=== PATIENT | female | born 1975 | race Caucasian/White ===

== ENCOUNTER 2019-03-14 08:38 | Outpatient (CLI) | payer OTHER, SELFPAY ==
--- NOTE | 2019-03-14 | MR_ITS ---
WS: [id number] MRI LUMBAR SPINE WITH AND WITHOUT CONTRAST HISTORY: HX SPINAL STENOSIS, RADICULAR PAIN IN RIGHT ARM COMPARISON: 11/10/2017 TECHNIQUE: Sagittal and axial multisequence imaging is submitted. Sagittal and axial T1 fat sat seque nces post-ProHance 17 cc IV. T10-11: Moderate disc space narrowing and osteophytic ridging. Disc desiccation and osteophytes have been present on the prior studies. There is encroachment and slight deformity on the ventral cord wit hout significant foraminal narrowing. Very slight narrowing of the RIGHT foramen and facet disease. Slight increase in lumbar lordosis. Similar to prior studies. Mild disc desiccation at L4-5. Moderate degenerative disc disease at L5-S1. No marrow edema or fractu re. Conus terminates normally at L1. L1-L2: Normal. L2-L3: Normal. L3-L4: Mild facet joint arthropathy and fluid in the facet joints. No stenosis. L4-L5: Mild annular disc bulging with a very shallow central disc protrusion, similar to the prior st juny. Facet joint arthropathy and fluid in the facet joints. No stenosis. L5-S1: Prior LEFT hemilaminectomy defect. Thecal sac is widely patent with slight clumping of the ner ve roots in the periphery. Small RIGHT paracentral disc protrusion. Similar to the prior study. Sligh t encroachment upon the ventral thecal sac but no stenosis. Osteophytes extend into the neural forami na without significant stenosis. Slightly larger osteophytes in the RIGHT foramen. No discitis or osteomyelitis.
--- NOTE | 2019-03-14 | MR_ITS ---
WS: [id number] MRI CERVICAL SPINE, with and without contrast. HISTORY: HX SPINAL STENOSIS COMPARISON: 11/10/2017 and 10/25/2012. Multiplanar, multisequence imaging is performed of the cervical spine. Sagittal and axial T1 fat sat sequences post-ProHance 17 cc IV. Normal posterior cervical alignment. No fracture or marrow edema. Very slight ectopia of the cerebell ar tonsils, similar to the prior study with no Chiari malformation. Signal within the cervical cord is normal. Unfortunately there is motion artifact on the STIR sequenc e but no signal abnormality is appreciated. Visualized posterior fossa is unremarkable. Craniocervical junction, C1 and C2 relationship, odontoid process and soft tissues are normal. C2-C3: Normal. C3-C4: Normal. C4-C5: Small vertebral body osteophytes with a shallow central disc protrusion. Bilateral foraminal o steophytes resulting in moderate bilateral foraminal stenosis. C5-C6: Mild osteophytic ridging and disc bulging. Shallow central disc protrusion without significant stenosis. C6-C7: Annular disc bulging and osteophytosis. Central disc protrusion with near contact on the cord. Small bilateral foraminal osteophytes. Mild central and LEFT foraminal stenosis. C7-T1: Normal. No signal abnormalities are identified within the cord. There is no enhancement.
--- NOTE | 2019-03-14 09:11 | MR_ITS ---
WS: [id number] MRI CERVICAL SPINE, with and without contrast. HISTORY: HX SPINAL STENOSIS COMPARISON: 11/10/2017 and 10/25/2012. Multiplanar, multisequence imaging is performed of the cervical spine. Sagittal and axial T1 fat sat sequences post-ProHance 17 cc IV. Normal posterior cervical alignment. No fracture or marrow edema. Very slight ectopia of the cerebell ar tonsils, similar to the prior study with no Chiari malformation. Signal within the cervical cord is normal. Unfortunately there is motion artifact on the STIR sequenc e but no signal abnormality is appreciated. Visualized posterior fossa is unremarkable. Craniocervical junction, C1 and C2 relationship, odontoid process and soft tissues are normal. C2-C3: Normal. C3-C4: Normal. C4-C5: Small vertebral body osteophytes with a shallow central disc protrusion. Bilateral foraminal o steophytes resulting in moderate bilateral foraminal stenosis. C5-C6: Mild osteophytic ridging and disc bulging. Shallow central disc protrusion without significant stenosis. C6-C7: Annular disc bulging and osteophytosis. Central disc protrusion with near contact on the cord. Small bilateral foraminal osteophytes. Mild central and LEFT foraminal stenosis. C7-T1: Normal. No signal abnormalities are identified within the cord. There is no enhancement. MR/MR cervical spine wo/w [id number] IMPRESSION: 1. No enhancing demyelinating lesions or signal abnormalities are appreciated involving the cord. Slight limitation due to motion artifact on the STIR sequen ce. 2. Central disc protrusion at C3-4 and osteophytes resulting in moderate bilat eral foraminal stenosis with mild progression since the prior study. 3. Central disc protrusion at C6-7 and osteophytes resulting in mild central a nd LEFT foraminal stenosis. Mild progression since the prior study.
--- NOTE | 2019-03-14 09:11 | MR_ITS ---
WS: [id number] MRI BRAIN WITH AND WITHOUT CONTRAST HISTORY: HEADACHE WEAKNESS COMPARISON: None available. TECHNIQUE: Multiplanar imaging performed through the brain with Prohance 17 ml's IV. No acute infarcts are seen. Chavez-white matter differentiation is well preserved. Minimal subcortical foci of increased T2 and FLAIR signal in the temporal parietal regions. No pericallosal signal abnorm alities. No susceptibility artifacts or prior lacunar infarcts. Ventricles and extra-axial spaces are normal. Clivus and pituitary gland are normal. Very minimal ectopia the cerebellar tonsils. No Chiari malformation. Signal within the upper cervical cord is normal. Postcontrast images are negative for masses or vascular malformations. Dural venous sinuses are normal. Paranasal sinuses: Well aerated with no significant disease. Mastoid air cells: Normal. Calvarium and scalp: Normal. MR/MR head wo/w con [id number] IMPRESSION: 1. No evidence for demyelinating lesions or abnormal enhancement within the br ain. 2. Minimal, age-appropriate subcortical foci of probably related to chronic is chemic disease.
--- NOTE | 2019-03-14 09:11 | MR_ITS ---
WS: [id number] MRI LUMBAR SPINE WITH AND WITHOUT CONTRAST HISTORY: HX SPINAL STENOSIS, RADICULAR PAIN IN RIGHT ARM COMPARISON: 11/10/2017 TECHNIQUE: Sagittal and axial multisequence imaging is submitted. Sagittal and axial T1 fat sat seque nces post-ProHance 17 cc IV. T10-11: Moderate disc space narrowing and osteophytic ridging. Disc desiccation and osteophytes have been present on the prior studies. There is encroachment and slight deformity on the ventral cord wit hout significant foraminal narrowing. Very slight narrowing of the RIGHT foramen and facet disease. Slight increase in lumbar lordosis. Similar to prior studies. Mild disc desiccation at L4-5. Moderate degenerative disc disease at L5-S1. No marrow edema or fractu re. Conus terminates normally at L1. L1-L2: Normal. L2-L3: Normal. L3-L4: Mild facet joint arthropathy and fluid in the facet joints. No stenosis. L4-L5: Mild annular disc bulging with a very shallow central disc protrusion, similar to the prior st udy. Facet joint arthropathy and fluid in the facet joints. No stenosis. L5-S1: Prior LEFT hemilaminectomy defect. Thecal sac is widely patent with slight clumping of the ner ve roots in the periphery. Small RIGHT paracentral disc protrusion. Similar to the prior study. Sligh t encroachment upon the ventral thecal sac but no stenosis. Osteophytes extend into the neural forami na without significant stenosis. Slightly larger osteophytes in the RIGHT foramen. No discitis or osteomyelitis. MR/MR lumbar spine wo/w con [id number] IMPRESSION: 1. Prior LEFT hemilaminectomy defect at L5-S1. 2. Shallow central disc protrusion at L4-5 with no change. 3. Small RIGHT paracentral disc protrusion L5-S1 with bilateral foraminal oste ophytes. No significant stenosis or progression. 4. Encroachment and mild contact upon the ventral thecal sac at T10-11 predomi nantly due to osteophyte disease, similar to prior examinations.
== END 2019-03-14 08:39 | disposition home or self-care (01) ==
PROVIDERS: Absent Provider Family Medicine; Family Provider Family Medicine; Visit Provider Family Medicine
DX: M51.27 Other intervertebral disc displacement, lumbosacral region (principal); M50.21 Other cervical disc displacement, high cervical region; H53.8 Other visual disturbances; R42 Dizziness and giddiness; R51 Headache; R53.1 Weakness; M79.2 Neuralgia and neuritis, unspecified; R20.0 Anesthesia of skin
CPT/HCPCS: 70553; 72156; 72158; A9579

== ENCOUNTER 2019-03-19 07:45 | Outpatient (CLI) | payer OTHER, SELFPAY ==
--- NOTE | 2019-03-19 08:11 | MR_ITS ---
WS: [id number] MRI THORACIC SPINE WITH CONTRAST TECHNIQUE: Sagittal T1, T2 and STIR imaging. Axial T2 imaging. Post gadolinium imaging was obtained. CLINICAL INFORMATION: BLE WEAKNESS, HX OF SPINAL STENOSIS COMPARISON: MRI cervical lumbar FINDINGS: Mild thoracic curve. No acute compression. No high-grade central canal stenosis. Mild disc bulging at T10-11 similar to the prior examinations with mild central canal stenosis. Moderate right and no sig nificant left foraminal narrowing. Moderate facet arthropathy. No other significant Tiny right pericentral protrusion T6-T7 with slight indentation on the thoracic cord. Spinal canal is patent. Tiny left pericentral protrusion T8-T9. Moderate facet arthropathy in the lower thoracic spi ne. Normal visualized thoracic aorta. Adrenal glands are normal. Normal paravertebral soft tissues. No ab normal gadolinium enhancement. No enhancing lesions within the thoracic cord. MR/MR thoracic spine wo/w [id number] IMPRESSION: 1. Small right pericentral protrusion T10-11 with mild central canal stenosis. Moderate right foraminal narrowing is unchanged. 2. Shallow right pericentral protrusion T6-T7 with slight indentation on the t horacic cord. 3. Moderate facet arthropathy lower thoracic spine. 4. No abnormal gadolinium enhancement. No enhancing lesions within the thoraci c cord. 5. Thoracic cord signal is normal.
--- NOTE | 2019-03-19 08:12 | MR_ITS ---
WS: [id number] MRI LUMBAR SPINE WITH CONTRAST TECHNIQUE: Sagittal T1, T2 and STIR imaging. Axial T1 and T2 imaging. Post gadolinium imaging was obt ained. CLINICAL INFORMATION: BLE WEAKNESS, HX OF SPINAL STENOSIS COMPARISON: MRI 1 FINDINGS: Prior postoperative changes left hemilaminectomy L5-S1. No recurrent disc extrusion. Disc bulging at T10-11 with mild central canal stenosis. Moderate right T10-11 foraminal narrowing. L1-L2: Normal. L2-L3: No significant disc bulging. Moderate facet arthropathy. Spinal canal and foramen are patent. L3-L4: Mild annular bulging. Moderate facet arthropathy. Spinal canal and foramen are patent. L4-L5: Mild annular bulging with slight effacement of ventral thecal sac. Moderate facet arthropathy. Mild right and no significant left foraminal narrowing. Slight effacement of ventral thecal sac. L5-S1: Disc desiccation. Prior hemilaminectomy. Right eccentric disc osteophyte complex with slight e ncroachment on the exiting right L5 nerve root without significant impingement. Right pericentral dis c osteophyte protrusion with slight narrowing of the right subarticular recess. Mild facet arthropath y. No abnormal gadolinium enhancement. MR/MR lumbar spine wo/w con [id number] IMPRESSION: 1. No significant changes compared to the prior examination. 2. Prior postoperative changes L5-S1 hemilaminectomy with a tiny right pericen tral disc osteophyte protrusion. Slight encroachment on the right S1 nerve root without significant impingement. 3. Right eccentric disc osteophyte complex L5-S1 without significant nerve anastacio t impingement. 4. Annular bulging L4-5 with slight effacement of ventral thecal sac. Spinal c anal and foramen are patent. 5. Moderate facet arthropathy L3-L4 and L4-L5. 6. Mild central canal stenosis T10-11 due to mild disc bulging with osteophyti c ridging. Moderate right T10-11 foraminal narrowing. 7. No abnormal gadolinium enhancement.
== END 2019-03-19 07:46 | disposition home or self-care (01) ==
LOC: RADWPI 07:49
PROVIDERS: Family Provider Family Medicine; PCP Family Medicine; Referring Provider Family Medicine; Visit Provider Family Medicine
DX: M48.061 Spinal stenosis, lumbar region without neurogenic claudication (principal); M51.26 Other intervertebral disc displacement, lumbar region; M48.04 Spinal stenosis, thoracic region; M51.24 Other intervertebral disc displacement, thoracic region; R53.1 Weakness
CPT/HCPCS: 72157; 72158; A9579

== ENCOUNTER 2019-04-01 09:20 | Outpatient (CLI) | payer OTHER, SELFPAY ==
--- NOTE | 2019-04-01 09:30 | USCV_ITS ---
Abdirahman Loo Age: 43 Gender: F : 1975 Exam Date: 04/01/2019 09:48 Ordering Phys: Elena Osuna MD Technologist: Brandon Dewey [place] [facility] [place]: TACHACARDIA CHEST PAIN BP: 150 / 90 HR: 60 Rhythm: Sinus Technical Quality: Adequate MEASUREMENTS (Male / Female) Normal Values 2D ECHO LV Diastolic Diameter PLAX 3.6 cm 4.2 - 5.9 / 3.9 - 5.3 cm LV Systolic Diameter PLAX 2.3 cm IVS Diastolic Thickness 0.7 cm 0.6 - 1.0 / 0.6 - 0.9 cm IVS Systolic Thickness 1.4 cm LVPW Diastolic Thickness 0.9 cm 0.6 - 1.0 / 0.6 - 0.9 cm LVPW Systolic Thickness 1.3 cm LVOT Diameter 2.1 cm LV Ejection Fraction 2D Teich 66.4 % LV Ejection Fraction MOD 2C 74.7 % LV Ejection Fraction 2C AL 74.4 % LA Diameter 3.7 cm LA Width 3.3 cm LA Height 3.4 cm RA Width 2.6 cm RA Height 3.6 cm M-MODE LV Diastolic Diameter MM 4.5 cm 4.2 - 5.9 / 3.9 - 5.3 cm LV Systolic Diameter MM 3.0 cm LV Ejection Fraction MM Teich 64.1 % IVS Diastolic Thickness MM 0.8 cm 0.6 - 1.0 / 0.6 - 0.9 cm IVS Systolic Thickness MM 0.9 cm LVPW Diastolic Thickness MM 0.7 cm 0.6 - 1.0 / 0.6 - 0.9 cm LVPW Systolic Thickness MM 1.9 cm RV Diastolic Diameter MM 1.3 cm Aortic Annulus Diameter 3.1 cm LA Ao Ratio MM 1.2 MV E Point Septal Separation 0.9 cm DOPPLER LVOT Peak Velocity 92.0 cm/s MV Area PHT 5.0 cm squared Mitral E to A Ratio 0.9 MV E' Velocity 11.0 cm/s Mitral E to MV E' Ratio 6.3 Mitral E to LV E' Lateral Ratio 6.0 Mitral E to LV E' Septal Ratio 6.7 TR Peak Velocity 129.0 cm/s TR Peak Gradient 6.6 mmHg FINDINGS Left Ventricle Normal left ventricular size and systolic function, EF 66 %. No regional wall motion abnormalities. Right Ventricle Possibly normal size ejection fraction Right Atrium Possibly of normal size Left Atrium Possibly of normal size Mitral Valve Minimally thickened mitral valve Aortic Valve Leaflet could not be visualized well. No gross abnormalities seen Tricuspid Valve Could not be visualized well Pulmonic Valve Could not be visualized well Pericardium No pericardial effusion Aorta Normal aortic annulus size. CONCLUSIONS Normal left ventricular size and systolic function, EF 66 %. No regional wall motion abnormalities. Other cardiac chamber sizes possibly within normal limits No obvious valvular abnormalities There is no pericardial effusion. Technically difficult study because of the poor ultrasonic window. Dr Lester Briscoe MD FACC (Electronically Signed) Final Date: 02 April 2019 07:32 C MTDD
--- NOTE | 2019-04-01 09:58 | SUR.PREOP ---
PATIENT HERE FOR TESTING PATIENT HERE FOR ULTRASOUND AWARE THAT SHE HAD AN ECHO SCHEDULED BUT NOT AWARE OF THE STRESS ECHO. STATES TO ME THAT SHE HAD A STRESS TEST IN [facility] LESS THAN A YEAR AGO. PATIENT AWARE THAT STRESS TIME IS AT 1 PM AND WILL NEED TO CHECK IN AT 1230 TO COMPLETE THAT PORTION OF THE TESTING TODAY. SHE STATES SHE CANNOT D/T WORK. WILL RESCHEDULE AT PATIENT'S CONVENIENCE, BUT THE PATIENT IS WANTING CLARIFICATION FOR STRESS TEST SINCE SHE HAS ONE SO RECENT FROM ANOTHER FACILITY. DR GUNDERSON IS NOT HERE TODAY AND IS OUT OF TOWN UNTIL APRIL TO ASK. STATES SHE WILL CALL HEART CARE AND CLARIFY THE NEED FOR STRESS TEST AND WANT'S TO CANCEL TODAY. NOTED. SCHEDULING AND HEART CARE MADE AWARE.
== END 2019-04-01 09:21 | disposition home or self-care (01) ==
PROVIDERS: Family Provider Family Medicine; PCP Family Medicine; Visit Provider Internal Medicine Cardiovascular Disease
DX: R07.9 Chest pain, unspecified (principal); R00.0 Tachycardia, unspecified
CPT/HCPCS: 93306

== ENCOUNTER → 2019-04-02 14:00 | Outpatient (BNVA) | payer OTHER, SELFPAY | PROVIDERS: Family Provider Family Medicine; PCP Family Medicine; Referring Provider Family Medicine; Visit Provider Internal Medicine Rheumatology | DX: Z11.59 Encounter for screening for other viral diseases (principal); R76.8 Other specified abnormal immunological findings in serum; M19.90 Unspecified osteoarthritis, unspecified site; I73.00 Raynaud's syndrome without gangrene | CPT/HCPCS: 81001; 85025 ==

== ENCOUNTER → 2019-04-02 14:57 | Outpatient (BNVA) | payer OTHER, SELFPAY | PROVIDERS: Family Provider Family Medicine; PCP Family Medicine; Referring Provider Family Medicine; Visit Provider Internal Medicine Rheumatology | DX: I73.00 Raynaud's syndrome without gangrene (principal); Z11.59 Encounter for screening for other viral diseases; Z11.1 Encounter for screening for respiratory tuberculosis; R76.8 Other specified abnormal immunological findings in serum; M19.90 Unspecified osteoarthritis, unspecified site | CPT/HCPCS: 36415; 82565; 82570; 84156; 85651; 86140; 86160; 86431; 86480; 86705; 86706; 86709; 86803; 87340; 99204 ==

== ENCOUNTER → 2019-04-16 13:44 | Outpatient (BNVA) | payer OTHER, SELFPAY | PROVIDERS: Family Provider Family Medicine; PCP Family Medicine; Referring Provider Family Medicine; Visit Provider Internal Medicine Rheumatology | DX: I73.00 Raynaud's syndrome without gangrene (principal); I10 Essential (primary) hypertension; M25.50 Pain in unspecified joint | CPT/HCPCS: 99213 ==

== ENCOUNTER 2021-02-16 07:32 | Emergency (ER) | payer OTHER, SELFPAY ==
[2021-02-16 07:38] VITALS: BP 169/107; PULSE 88; RESP 18; TEMP 36.8; O2SAT 100; BMI 38.6
[2021-02-16 07:54] VITALS: BP 169/107; PULSE 89; RESP 18; TEMP 36.3; O2SAT 100
--- NOTE | 2021-02-16 07:59 | CT_ITS ---
WS: [id number] CT LUMBAR SPINE, noncontrast. HISTORY: lower back pain; trouble ambulating TECHNIQUE: Contiguous 2.5 mm axial imaging are performed. Sagittal and coronal reformats are submitte d and reviewed. All CT scans at [facility] use at least one of these dose optimization techni ques: automated exposure control; mA and/or kV adjustment per patient size (includes targeted exams w here dose is matched to clinical indication); or iterative reconstruction. IV contrast: None DLP: 2487.44 mGy.cm COMPARISON: 05/13/2014 Very slight LEFT curvature of the lumbar spine. Posterior alignment is normal. No compression fractur es. Moderate progression of degenerative disc disease at L5-S1. Endplate sclerosis with increasing os teophytes. L1-2: Normal. L2-3: Normal. L3-4: Normal. L4-5: Broad-based central disc protrusion contacting the ventral thecal sac, slightly greater contact on the RIGHT. Mild contact on the RIGHT traversing L5 nerve root. Very mild central and subarticular recess stenosis on the RIGHT. L5-S1: Mild osteophytic ridging. Osteophytes encroach into the foramina and subarticular recesses vicente aterally. Very mild osteophyte contact on the S1 nerve roots bilaterally but greatest on the RIGHT. M ild osteophyte encroachment upon the posterior surfaces of the exiting L5 nerve roots, RIGHT greater than LEFT. Visualized retroperitoneum is normal. CT/CT lumbar spine wo con* [id number] IMPRESSION: 1. Broad-based central disc protrusion at L4-5 with mild contact on the RIGHT traversing L5 nerve root and resulting in mild central and RIGHT subarticular r ecess narrowing. Mild progression of degenerative changes since the prior study . 2. Vertebral body osteophytes at L5-S1 encroaching upon the nerve roots bilate rally. Slightly greater contact on the RIGHT L5 and S1 nerve roots by the osteo phytes.
--- NOTE | 2021-02-16 08:00 | ED_ITS ---
Documented by User: RASHAD Caal 02/16/21 12:39 HPI - Back Pain/Injury General: Chief Complaint: Back Pain/Injury Stated Complaint: SEVERE LOWER BACK PAIN Time Seen by Provider: 02/16/21 07:33 Source: patient Mode of arrival: ambulatory Limitations: no limitations History of Present Illness: HPI Narrative: Patient is a 45-year-old female presents to ED today with a complaint of severe lower back pain. Patient tells me yesterday she was getting up from her recliner when she immediately felt pain in her lower back. Patient states she was not able to sleep yesterday secondary to discomfort. Patient states pain is in her mid to lower back and does not seem to radiate into her hips or buttocks. She does feel like pain slightly radiates into her right > left anterior thigh. Patient states approximately 10 years ago she had emergent back surgery by Dr. Hewitt (L5-S1 discectomy). She states her symptoms today feel almost identical to the pain she experienced then. She is not having any issues with urinary retention or bowel incontinence. Patient states she is not able to ambulate secondary to pain. No fevers, recent infections, or IV drug use. MD elicited complaint: back pain Pertinent past history: prior back pain Onset (ago): day(s) Timing: constant Severity: severe Pain scale (0-10): 10 Similar Symptoms Previously: Yes Quality: sharp and stabbing Location: lumbar spine Radiation: left upper leg and right upper leg Exacerbating factors: movement and walking Relieving factors: none Associated symptoms: Reports no associated symptoms and difficulty walking (secondary to back pain); Deny abdominal pain, chills, dysuria, fatigue, fever(s), hematuria or syncope Work related injury: No Review of Systems Const: Denies: fever(s), chills, body aches, fatigue or malaise Card: Denies: chest pain, palpitations, irregular heart rhythm, edema, lightheadedness, syncope or pre-syncope Resp: Denies: dyspnea GI: Denies: abdominal pain : Denies: flank pain, dysuria or hematuria Musc: Reports: back pain; Denies: neck pain, extremity pain, extremity swelling, joint pain, joint swelling, joint redness, joint warmth, joint stiffness or limited range of motion Skin/Breast: Denies: rash Neuro: Reports: difficulty walking (secondary to back pain); Denies: headache(s) or numbness in extremities PFSH ED PFSH: Medical History Arthralgia of both hands Chest pain Encounter for screening for other viral diseases HTN (hypertension) Inflammatory arthritis Raynaud's disease Surgical History S/P section S/P laminectomy Family History Father Myocardial infarct, Onset Age: 35 CAD (coronary artery disease) Daughter SVT (supraventricular tachycardia) Mother Lupus (systemic lupus erythematosus) Grandmother Lupus (systemic lupus erythematosus) Family/Other SVT (supraventricular tachycardia) Social History Smoking and tobacco status: never smoked Alcohol intake: never History of recent travel: No Physical Exam Const: COMMON NORMALS: patient oriented x3, no limitations and alert GENERAL APPEARANCE: cooperative and in distress (appears very uncomfortable secondary to pain) NUTRITIONAL APPEARANCE: obese ORIENTATION/CONSCIOUSNESS: Yes awake, Yes oriented to person, Yes oriented to place and Yes oriented to time HENMT: COMMON NORMALS: normocephalic and atraumatic HEAD & SCALP: normocephalic and atraumatic Resp: COMMON NORMALS: normal respiratory effort and clear to auscultation bilaterally AUSCULTATION: clear to auscultation bilaterally Cardio: COMMON NORMALS: regular rate and regular rhythm RATE: regular rate RHYTHM: regular rhythm Back/Pelvis: THORACIC SPINE/UPPER BACK: Yes normal to inspection, No thoracic spinal tenderness and No paraspinal muscle tenderness LUMBAR SPINE/LOWER BACK: Yes ROM limited, Yes lumbar spinal tenderness Lumbar spinal tenderness location: L2, L3 and L4, No paraspinal muscle tenderness, No paraspinal muscle spasm, Yes straight leg raise positive right and Yes straight leg raise positive left PELVIS: Yes buttocks normal SACROILIAC JOINTS: Yes SI joints normal Extremity: COMMON NORMALS: normal to inspection, capillary refill normal, no joint enlargement, no clubbing, cyanosis or edema, no calf tenderness and no pedal edema GENERAL: Yes normal exam except as noted Neuro: COMMON NORMALS: patient oriented x3 SENSORIUM/ORIENTATION: Yes alert, Yes oriented to person, Yes oriented to place and Yes oriented to time MOTOR EXAM: Abnormal motor strength present (LE strength limited secondary to pain-will reassess once pain improves) Skin: COMMON NORMALS: no rashes or lesions noted GENERAL SKIN EXAM: no rashes or lesions noted Course Vital Signs: Vital signs: Vital Signs Temperature 97.3 F L 02/16/21 07:54 Pulse Rate 61 02/16/21 11:39 Respiratory Rate 18 02/16/21 12:17 Blood Pressure 141/61 02/16/21 11:39 Pulse Oximetry 98 02/16/21 12:17 MDM - Back Pain/Injury MDM Narrative: Medical decision making narrative: Discussed CT findings with Dr. Davidson who doesn't feel we need to get emergent MRI based on her findings and physical assessment. We will have patient follow up with Dr. Marquez for further evaluation (this has already been scheduled for Monday). Will treat with NSAIDS, muslce relaxers, steroids, pain meds in the meantime. Return to ED precautions given. Imaging Data^: CT lumbar: Radiologist's impression: [address] [address] [address] Scan Report Signed Patient: Abdirahman Loo Unit #: [id number] : 1975 Age/Sex: 45 / F ADM Date: 02/16/21 Loc: ER Room/Bed: Attending Dr: Ordering Provider/Ordering MD: Yolis Alexandre Date of Service: 02/16/21 Procedure(s): CT lumbar spine wo con* [id number] Accession Number(s): [id number] Report Number: [id number] WS: [id number] CT LUMBAR SPINE, noncontrast. HISTORY: lower back pain; trouble ambulating TECHNIQUE: Contiguous 2.5 mm axial imaging are performed. Sagittal and coronal reformats are submitted and reviewed. All CT scans at [facility] use at least one of these dose optimizat ion techniques: automated exposure control; mA and/or kV adjustment per patient size (includes targeted exams where dose is matched to clinical indication); or iterative reconstruction. IV contrast: None DLP: 2487.44 mGy.cm COMPARISON: 05/13/2014 Very slight LEFT curvature of the lumbar spine. Posterior alignment is normal. No compression fractures. Moderate progression of degenerative disc disease at L5-S1. Endplate sclerosis with increasing osteophytes. L1-2: Normal. L2-3: Normal. L3-4: Normal. L4-5: Broad-based central disc protrusion contacting the ventral thecal sac, slightly greater contact on the RIGHT. Mild contact on the RIGHT traversing L5 nerve root. Very mild central and subarticular recess stenosis on the RIGHT. L5-S1: Mild osteophytic ridging. Osteophytes encroach into the foramina and subarticular recesses bilaterally. Very mild osteophyte contact on the S1 nerve roots bilaterally but greatest on the RIGHT. Mild osteophyte encroachment upon the posterior surfaces of the exiting L5 nerve roots, RIGHT greater than LEFT. Visualized retroperitoneum is normal. CT/CT lumbar spine wo con* [id number] IMPRESSION: 1. Broad-based central disc protrusion at L4-5 with mild contact on the RIGHT traversing L5 nerve root and resulting in mild central and RIGHT subarticular recess narrowing. Mild progression of degenerative changes since the prior study. 2. Vertebral body osteophytes at L5-S1 encroaching upon the nerve roots bilaterally. Slightly greater contact on the RIGHT L5 and S1 nerve roots by the osteophytes. Dictated By: Swetha Whiteside DO Signed By: Swetha Whiteside DO Signed Date/Time: 02/16/21822 DD/ 4 Discharge Plan Discharge Patient Disposition: Home Clinical Impression: Bulging of intervertebral disc between L4 and L5 Condition: Stable Prescriptions: New cyclobenzaprine 10 mg tablet 10 mg PO TID Qty: 14 RF: 0 prednisone 10 mg tablet 60 mg PO DAILY 5 Days Qty: 30 RF: 0 ibuprofen 800 mg tablet 800 mg PO Q8H PRN (Reason: pain) Qty: 20 RF: 0 hydrocodone-acetaminophen 5-325 mg tablet 1 tab PO Q6H PRN (Reason: pain) Qty: 14 RF: 0 Discontinued hydrocodone-acetaminophen [[place]] 5-325 mg Tablet 1 tab PO ONCE PRN (Reason: pt states this is an old rx ) RF: 0 No Action hydrochlorothiazide 25 mg tablet 25 mg PO QAM RF: 0 atenolol 25 mg Tablet 37.5 mg PO BID RF: 0 Truvision Tabs 1 tab PO DAILY PRN (Reason: weight loss) RF: 0 Discharge Orders: Discharge ED (Routine); Ordered 02/16/21 Ordered By: Yolis Alexandre Referrals: Cecil Marquez DO [Physician] - Jannette Cook MD [Primary Care Provider] - Patient Instructions: Opioid Safety Activity Restrictions/Additional Instructions: [facility] is committed to fighting the nationwide opiate epidemic. We are providing ALL patients with information regarding opiate safety. If you received opiate pain medication during your stay or if you received a prescription for opiate pain medication-please review this handout. If not, you may disregard. Thank you. As we discussed you are scheduled to see Dr. Marquez next Monday. You may use prescribed medications to help with discomfort in the meantime. You may return to the emergency department for worsening or severe back pain, uncontrollable pain, inability to ambulate or care for yourself, urinary retention, bowel incontinence, or any other concerns you may have. I hope you begin to feel better soon. Coding Level of Care Code ED Lime Kiln Tender for Chg Fwd Exam Comprehensive Documented by User: Gilmar Davidson DO 02/16/21 17:37 HPI - Back Pain/Injury General: Chief Complaint: Back Pain/Injury Stated Complaint: SEVERE LOWER BACK PAIN Time Seen by Provider: 02/16/21 07:33 [facility] ED PFSH: Medical History Arthralgia of both hands Chest pain Encounter for screening for other viral diseases HTN (hypertension) Inflammatory arthritis Raynaud's disease Surgical History S/P section S/P laminectomy Family History Father Myocardial infarct, Onset Age: 35 CAD (coronary artery disease) Daughter SVT (supraventricular tachycardia) Mother Lupus (systemic lupus erythematosus) Grandmother Lupus (systemic lupus erythematosus) Family/Other SVT (supraventricular tachycardia) Social History Smoking and tobacco status: never smoked Alcohol intake: never History of recent travel: No Course Vital Signs: Vital signs: Vital Signs Temperature 97.3 F L 02/16/21 07:54 Pulse Rate 61 02/16/21 11:39 Respiratory Rate 18 02/16/21 12:17 Blood Pressure 141/61 02/16/21 11:39 Pulse Oximetry 98 02/16/21 12:17 MDM - Back Pain/Injury MDM Narrative: Medical decision making narrative: Chart reviewed and patient discussed with midlevel. Agree with assessment and plan. Discharge Plan Discharge Patient Disposition: Home Clinical Impression: Bulging of intervertebral disc between L4 and L5 Condition: Stable Prescriptions: New cyclobenzaprine 10 mg tablet 10 mg PO TID Qty: 14 RF: 0 prednisone 10 mg tablet 60 mg PO DAILY 5 Days Qty: 30 RF: 0 ibuprofen 800 mg tablet 800 mg PO Q8H PRN (Reason: pain) Qty: 20 RF: 0 hydrocodone-acetaminophen 5-325 mg tablet 1 tab PO Q6H PRN (Reason: pain) Qty: 14 RF: 0 Discontinued hydrocodone-acetaminophen [[place]] 5-325 mg Tablet 1 tab PO ONCE PRN (Reason: pt states this is an old rx ) RF: 0 No Action hydrochlorothiazide 25 mg tablet 25 mg PO QAM RF: 0 atenolol 25 mg Tablet 37.5 mg PO BID RF: 0 Truvision Tabs 1 tab PO DAILY PRN (Reason: weight loss) RF: 0 Discharge Orders: Discharge ED (Routine); Ordered 02/16/21 Ordered By: Yolis Alexandre Referrals: Cecil Marquez DO [Physician] - Jannette Cook MD [Primary Care Provider] - Patient Instructions: Opioid Safety Activity Restrictions/Additional Instructions: [facility] is committed to fighting the nationwide opiate epidemic. We are providing ALL patients with information regarding opiate safety. If you received opiate pain medication during your stay or if you received a prescription for opiate pain medication-please review this handout. If not, you may disregard. Thank you. As we discussed you are scheduled to see Dr. Marquez next Monday. You may use prescribed medications to help with discomfort in the meantime. You may return to the emergency department for worsening or severe back pain, uncontrollable pain, inability to ambulate or care for yourself, urinary retention, bowel incontinence, or any other concerns you may have. I hope you begin to feel better soon. Coding Level of Care Code ED Lime Kiln Tender for Lela Fwd Exam Comprehensive
[2021-02-16] MEDS: ketorolac 60 mg/2 mL INJ 30 MG IVP (09:05)
[2021-02-16] MEDS: morphine 4 mg/mL SDV 1 mL IVP (09:06)
[2021-02-16] MEDS: ondansetron 2 mg/ML SDV 2 mL 4 MG IVP (09:06)
[2021-02-16 10:21] VITALS: BP 141/61; PULSE 55; RESP 14; O2SAT 99
[2021-02-16] MEDS: dexamethasone 10 mg/mL INJ 8 MG IV (10:39)
[2021-02-16] MEDS: orphenadrine 30 mg/mL Inj 2 mL 60 MG IV (10:40)
[2021-02-16 11:39] VITALS: BP 141/61; PULSE 61; RESP 16; O2SAT 99
--- NOTE | 2021-02-16 11:39 | DCPLANNER ---
client solutions manager had message to schedule a follow up appointment for patient with ortho. client solutions manager called the ortho clinic spoke with Jocelyn, gave clinic patients information. client solutions manager was told that patients information would be printed and reviewed. Clinic will call patient with appointment information.
--- NOTE | 2021-02-16 11:52 | PC.NURSE ---
All IVP meds given to Sarah CHOI to give after I pulled from [facility]
[2021-02-16 12:17] VITALS: RESP 18; O2SAT 98
[2021-02-16] MEDS: HYDROmorphone 1 mg/mL INJ 1 mL IVP (12:17)
--- NOTE | 2021-02-22 05:45 | DCPLANNER ---
Patient has a follow up appointment scheduled for Tuesday, February 23, 2021 at 1:30 with RASHAD Jones, at [facility]. Clinic will call patient with appointment information.
--- NOTE | 2021-03-05 11:14 | DCPLANNER ---
Patient had a follow up appointment scheduled for 02.23.21 with ortho - patient did not attend appointment.
== END 2021-02-16 12:57 | disposition home or self-care (01) ==
PROVIDERS: Emergency Provider Physician Assistant; PCP Family Medicine
DX: M51.26 Other intervertebral disc displacement, lumbar region (principal); I10 Essential (primary) hypertension
CPT/HCPCS: 72131; 96374; 96375; 99284; J1100; J1170; J1885; J2270; J2360; J2405

== ENCOUNTER 2021-07-09 09:52 | Emergency (ER) | payer OTHER, SELFPAY ==
[2021-07-09] VITALS (7 sets, daily range): BP systolic 163–186; BP diastolic 95–115; PULSE 69–104; RESP 12–18; TEMP 36.8; O2SAT 98–100; BMI 36.6
--- NOTE | 2021-07-09 10:10 | ED_ITS ---
Documented by User: Gilmar Davidson DO 07/13/21 06:28 HPI - Chest Pain General: Chief Complaint: Chest Pain Stated Complaint: cp Time Seen by Provider: 07/09/21 10:16 Source: patient Mode of arrival: ambulatory Limitations: no limitations History of Present Illness: 45-year-old female presents to the emergency room began having central chest pressure radiating to her left shoulder up into her neck. Is a cramping-like sensation started at 830 while she was at work she became dizzy after that and a little bit clammy. She is on atenolol but had not taken her prescription. She had recently run out and not refilled it. On arrival here she is having minimal discomfort. She has had some nausea but no vomiting she was mildly short of breath. She denies any previous history of coronary disease. She is nondiabetic. MD complaint: chest pain Timing of current episode: episodic Onset: during rest Pain location: left chest Pain radiation: neck and jaw/teeth Severity: mild Quality: heaviness and sharp Relieving factors: nothing Exacerbating factors: nothing Associated symptoms: Deny abdominal pain, diaphoresis, dyspnea, fever(s), leg edema, nausea, palpitations, sense of impending doom, syncope or vomiting Treatment prior to arrival: none Review of Systems Const: Denies: fever(s), chills or diaphoresis ENMT: Denies: throat pain, ear or mastoid pain, nasal discharge or nasal congestion Card: Reports: chest pain; Denies: palpitations, irregular heart rhythm, edema, swelling of feet/ankles or syncope Resp: Denies: dyspnea, productive cough, non-productive cough or wheezing GI: Denies: abdominal pain, nausea, vomiting or hematemesis : Denies: flank pain, difficulty voiding, dysuria, urinary frequency or urinary urgency Musc: Denies: neck pain or back pain Skin/Breast: Denies: rash or pruritus PFSH ED PFSH: Medical History Arthralgia of both hands Chest pain Encounter for screening for other viral diseases HTN (hypertension) Inflammatory arthritis Raynaud's disease Surgical History S/P section S/P laminectomy Family History Father Myocardial infarct, Onset Age: 35 CAD (coronary artery disease) Daughter SVT (supraventricular tachycardia) Mother Lupus (systemic lupus erythematosus) Grandmother Lupus (systemic lupus erythematosus) Family/Other SVT (supraventricular tachycardia) Social History Smoking and tobacco status: never smoked Alcohol intake: never History of recent travel: No Physical Exam Const: COMMON NORMALS: no acute distress GENERAL APPEARANCE: cooperative and comfortable ORIENTATION/CONSCIOUSNESS: Yes awake, Yes oriented to person, Yes oriented to place and Yes oriented to time HENMT: COMMON NORMALS: normocephalic, atraumatic and hearing grossly normal bilaterally HEAD & SCALP: normocephalic and atraumatic Neck/C-Spine: COMMON NORMALS: no JVD Resp: COMMON NORMALS: normal respiratory effort, No retractions, No use of accessory muscles and clear to auscultation bilaterally AUSCULTATION: clear to auscultation bilaterally Cardio: COMMON NORMALS: no JVD, regular rate, regular rhythm and No murmurs present (Cardio) RATE: regular rate RHYTHM: regular rhythm GI: COMMON NORMALS: Soft to palpation and No hepatosplenomegaly present AUSCULTATION: Yes normoactive bowel sounds PALPATION: Yes Soft to palpation, No Tenderness to palpation present (GI), No Guarding due to palpation present (GI) and Yes No hepatosplenomegaly present Extremity: COMMON NORMALS: normal to inspection, capillary refill normal, no clubbing, cyanosis or edema, no calf tenderness and no pedal edema Neuro: SENSORIUM/ORIENTATION: Yes oriented to person, Yes oriented to place and Yes oriented to time Skin: COMMON NORMALS: no rashes or lesions noted GENERAL SKIN EXAM: no rashes or lesions noted Course Vital Signs: Vital signs: Vital Signs Temperature 98.3 F 07/09/21 09:58 Pulse Rate 89 07/09/21 14:48 Respiratory Rate 18 07/09/21 14:48 Blood Pressure 163/109 07/09/21 14:48 Pulse Oximetry 98 07/09/21 14:48 MDM - Chest Pain Medical Decision Making Labs and imaging reviewed. Change from atenolol to Toprol-XL. We will also add isosorbide mononitrate and encourage her to continue to take aspirin daily. Enzymes negative at this point. We will have her follow-up with cardiology within the week. And we will set her up for a Lexiscan sestamibi stress test as an outpatient. Medical Records I reviewed the patient's medical records. Lab Data I reviewed the patient's lab results. : 07/09/21 10:10 07/09/21 10:10 Radiology Impressions Chest X-Ray 07/09/21 10:16 IMPRESSION: No acute findings. Laboratory Results WBC 5.4 10^3/uL (4.0-10.0) 07/09/21 10:10 RBC 4.93 10^6/uL (4.1-5.3) 07/09/21 10:10 Hgb 11.1 g/dL (11.5-15.3) L 07/09/21 10:10 Hct 36.6 % (37.0-47.0) L 07/09/21 10:10 MCV 74.2 fl (81-99) L 07/09/21 10:10 MCH 22.5 pg (28.0-34.0) L 07/09/21 10:10 MCHC 30.3 g/dL (30.0-36.0) 07/09/21 10:10 RDW 16.8 % (12.1-15.1) H 07/09/21 10:10 Plt Count 260 10^3/cmm (130-400) 07/09/21 10:10 MPV 11.1 fL (7.4-10.4) H 07/09/21 10:10 Neut % (Auto) 59.2 % 07/09/21 10:10 Lymph % (Auto) 29.0 % 07/09/21 10:10 Grady % (Auto) 7.6 % 07/09/21 10:10 Eos % (Auto) 3.3 % 07/09/21 10:10 Baso % (Auto) 0.7 % 07/09/21 10:10 Neut # (Auto) 3.20 10^3/uL (1.8-7.7) 07/09/21 10:10 Lymph # (Auto) 1.6 10^3/uL (0.8-4.8) 07/09/21 10:10 Grady # (Auto) 0.4 10^3/uL (0.2-0.9) 07/09/21 10:10 Eos # (Auto) 0.2 10^3/uL (0.0-0.8) 07/09/21 10:10 Baso # (Auto) 0.0 10^3/uL (0.0-0.1) 07/09/21 10:10 Nucleated RBC % (auto) 0 % 07/09/21 10:10 Nucleated RBCs # 0.0 /100WBC 07/09/21 10:10 Sodium 136 mmol/L (136-145) 07/09/21 10:10 Potassium 3.6 mmol/L (3.5-5.1) 07/09/21 10:10 Chloride 103 mmol/L (98-107) 07/09/21 10:10 Carbon Dioxide 24 mmol/L (22-29) 07/09/21 10:10 Anion Gap 12.6 (5-19) 07/09/21 10:10 BUN 8 mg/dL (6-20) 07/09/21 10:10 Creatinine 0.7 mg/dL (0.5-0.9) 07/09/21 10:10 GFR Calculation 90.9 mL/min (90-130) 07/09/21 10:10 Glucose 117 mg/dL (65-115) H 07/09/21 10:10 Calculated Osmolality 281 mOsm/kg (285-295) L 07/09/21 10:10 Calcium 8.2 mg/dL (8.5-10.5) L 07/09/21 10:10 Total Bilirubin 0.2 mg/dL (0.15-1.2) 07/09/21 10:10 AST 27 U/L (0-32) 07/09/21 10:10 ALT 23 U/L (0-33) 07/09/21 10:10 Alkaline Phosphatase 89 IU/L (35-105) 07/09/21 10:10 Troponin T Baseline 7 ng/L (0-10) 07/09/21 10:10 Troponin T 120 Minute 6.00 ng/L (0-10) 07/09/21 12:28 Delta Troponin T -1.00 ABS# (0-10) L 07/09/21 12:28 Total Protein 6.7 g/dL (6.6-8.7) 07/09/21 10:10 Albumin 4.1 g/dL (3.5-5.2) 07/09/21 10:10 Globulin 2.6 g/dL (1.3-4.6) 07/09/21 10:10 Discharge Plan Discharge Patient Disposition: Home Clinical Impression: Chest pain Condition: Stable Prescriptions: New isosorbide mononitrate 30 mg tablet extended release 24 hr 30 mg PO DAILY Qty: 30 0RF aspirin 81 mg tablet,delayed release (DR/EC) 81 mg PO DAILY Qty: 30 0RF Toprol XL 25 mg tablet extended release 24 hr 25 mg PO DAILY Qty: 30 0RF Discontinued atenolol 25 mg Tablet 25 mg PO BID 0RF No Action hydrochlorothiazide 25 mg tablet 25 mg PO QAM 0RF Truvision Tabs 1 tab PO BID 0RF ibuprofen 800 mg tablet 800 mg PO Q8H PRN (Reason: pain) Qty: 20 0RF hydrocodone-acetaminophen 5-325 mg tablet 1 tab PO Q6H PRN (Reason: pain) Qty: 14 0RF Discharge Orders: Discharge ED (Routine); Ordered 07/09/21 Ordered By: Gilmar Davidson Referrals: Jannette Cook MD [Primary Care Provider] - Discharge Diet: Usual diet Discharge Activity: Limit activity as instructed Patient Instructions: Opioid Safety Activity Restrictions/Additional Instructions: No exertional activity. return to the ER if you have any further chest pain. Coding Level of Care Code ED Mitochondrial Disorders Counselor for Chg Fwd Documented by User: BOBY Yo 07/09/21 15:03 HPI - Chest Pain General: Chief Complaint: Chest Pain Stated Complaint: cp Time Seen by Provider: 07/09/21 10:16 PFSH ED PFSH: Medical History Arthralgia of both hands Chest pain Encounter for screening for other viral diseases HTN (hypertension) Inflammatory arthritis Raynaud's disease Surgical History S/P section S/P laminectomy Family History Father Myocardial infarct, Onset Age: 35 CAD (coronary artery disease) Daughter SVT (supraventricular tachycardia) Mother Lupus (systemic lupus erythematosus) Grandmother Lupus (systemic lupus erythematosus) Family/Other SVT (supraventricular tachycardia) Social History Smoking and tobacco status: never smoked Alcohol intake: never History of recent travel: No Course Vital Signs: Vital signs: Vital Signs Temperature 98.3 F 07/09/21 09:58 Pulse Rate 89 07/09/21 14:48 Respiratory Rate 18 07/09/21 14:48 Blood Pressure 163/109 07/09/21 14:48 Pulse Oximetry 98 07/09/21 14:48 MDM - Chest Pain Medical Decision Making This was not my chart I did not see this patient. Lab Data : 07/09/21 10:10 07/09/21 10:10 Radiology Impressions Chest X-Ray 07/09/21 10:16
--- NOTE | 2021-07-09 10:16 | XRR_ITS ---
PROCEDURE INFORMATION: Exam: XR Chest Exam date and time: 07/09/2021 10:22 AM Age: 45 years old Clinical indication: Pain; Angina pectoris; Additional info: Chest pain TECHNIQUE: Imaging protocol: XR of the chest. Views: 1 view. COMPARISON: CR Chest 2 views* [id number] 01/23/2019 12:36 PM FINDINGS: Lungs: Unremarkable. No consolidation. Pleural spaces: Unremarkable. No pleural effusion. No pneumothorax. Heart/Mediastinum: Unremarkable. No cardiomegaly. Bones/joints: Unremarkable. XR/XR chest 1V portable [id number] IMPRESSION: No acute findings.
--- NOTE | 2021-07-09 10:16 | ECG_ITS ---
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 Measurements Intervals [place] Rate: 81 P: 55 [place]: 140 QRS: 1 QRSD: 89 T: 49 QT: 331 QTc: 386 Interpretive Statements SINUS RHYTHM WITH SINUS ARRHYTHMIA Compared to ECG 07/18/2018 12:57:12 Myocardial infarct finding no longer present Electronically Signed On 07-09-2021 20:19:26 CDT by Elena Osuna M.D. [email or web address] hospital for rehabilitationIndotrading/store/NU/[id number] f
--- NOTE | 2021-07-09 10:25 | PC.NURSE ---
monitoring engineer placed on patient.
[2021-07-09 10:35] LABS: Basophils % 0.7 %; Eosinophils # 0.2 10^3/uL (0.0-0.8); Eosinophils % 3.3 %; Hematocrit 36.6 % (37.0-47.0); Hemoglobin 11.1 g/dL (11.5-15.3); Lymphocytes # 1.6 10^3/uL (0.8-4.8); Mean Corpuscular HGB Conc 30.3 g/dL (30.0-36.0); Mean Corpuscular Hemoglobin 22.5 pg (28.0-34.0); Mean Corpuscular Volume 74.2 fl (81-99); Mean Platelet Volume 11.1 fL (7.4-10.4); Monocytes # 0.4 10^3/uL (0.2-0.9); Monocytes % 7.6 %; Neutrophils % 59.2 %; Nucleated Red Blood Cells % 0 %; Platelet Count 260 10^3/cmm (130-400); Red Blood Count 4.93 10^6/uL (4.1-5.3); Red Cell Distribution Width 16.8 % (12.1-15.1); White Blood Count 5.4 10^3/uL (4.0-10.0)
[2021-07-09] MEDS: metoprolol tartrate 1 mg/1 mL SDV 5 mL 5 MG IVP (10:42)
[2021-07-09] MEDS: amlodipine 10 mg Tablet PO (10:42)
[2021-07-09 10:52] LABS: Alanine Aminotransferase 23 U/L (0-33); Albumin Level 4.1 g/dL (3.5-5.2); Alkaline Phosphatase 89 IU/L (35-105); Blood Urea Nitrogen 8 mg/dL (6-20); Calcium 8.2 mg/dL (8.5-10.5); Carbon Dioxide 24 mmol/L (22-29); Chloride 103 mmol/L (98-107); Globulin 2.6 g/dL (1.3-4.6); Glomerular Filtration Rate 90.9 mL/min (90-130); Glucose 117 mg/dL (65-115); Osmolality Calculated 281 mOsm/kg (285-295); Sodium 136 mmol/L (136-145); Total Bilirubin 0.2 mg/dL (0.15-1.2); Total Protein 6.7 g/dL (6.6-8.7)
[2021-07-09 10:53] LABS: Troponin(5th) Baseline 7 ng/L (0-10)
[2021-07-09 10:56] LABS: Anion Gap 12.6 (5-19); Aspartate Amino Transferase 27 U/L (0-32); Potassium 3.6 mmol/L (3.5-5.1)
--- NOTE | 2021-07-09 12:16 | ECG_ITS ---
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 Measurements Intervals [place] Rate: 67 P: 48 AR: 154 QRS: 22 QRSD: 93 T: 42 QT: 381 QTc: 404 Interpretive Statements SINUS RHYTHM Compared to ECG 07/18/2018 12:57:12 Myocardial infarct finding no longer present Electronically Signed On 07-09-2021 20:52:05 CDT by Elena Osuna M.D. [id number]
--- NOTE | 2021-07-13 16:12 | DCPLANNER ---
Addendum entered by Shi Mack 11/02/21 14:40: patient attended stress test Original Note: manager transplant had message to schedule an outpatient stress test for patient. manager transplant spoke with patient to confirm that she wants the stress test ordered and to confirm who she sees for primary care. Patient stated that she wants the stress test ordered, and that she sees Dr. Jannette Cook. manager transplant will fax signed order to centralized scheduling, who will call patient with appointment information.
== END 2021-07-09 14:52 | disposition home or self-care (01) ==
PROVIDERS: Emergency Provider Family Medicine; PCP Family Medicine
DX: R07.9 Chest pain, unspecified (principal); I10 Essential (primary) hypertension; Z79.82 Long term (current) use of aspirin; Z79.891 Long term (current) use of opiate analgesic; Z82.49 Family history of ischemic heart disease and other diseases of the circulatory system
CPT/HCPCS: 71045; 80053; 84484; 85025; 93005; 96374; 99284; J3490

== ENCOUNTER 2021-08-13 08:46 | Outpatient (CLI) | payer OTHER, SELFPAY ==
[2021-08-13 08:57] VITALS: BMI 36.6
--- NOTE | 2021-08-13 09:10 | NMCV_ITS ---
NM spencer perf SPECT r/s* [id number] Abdirahman Loo Age: 45 Gender: F : 1975 Exam Date: 08/13/2021 10:25 Ordering Phys: Gilmar Davidson DO Technologist: LANE Mcdonald Exam Location: [facility] Indications: CHEST PAIN STRESS TEST Please see separate stress test report in [facility] for full findings IMAGE PROTOCOL Rest/Stress 1 Lexiscan Day Radiopharmaceutical Dose (mCi) Administration Site Administered by Rest: Tc-99m 10.[address] [place] Sestamibi Stress:Tc-99m 32.[address] [place] Sestamibi Rest: 13-Aug-2021 60 Discovery 630 Stress: 13-Aug-2021 30 Discovery 630 0.4mg Lexiscan. Images obtained in supine and prone position. SPECT RESULTS Technical Quality: Excellent Raw Data Analysis: Normal Image Corrections: No attenuation or motion correction applied Summed Stress Score: 0 Summed Rest Score: 0 Summed Difference Score: 0 PERFUSION FINDINGS Uniform myocardial tracer uptake with no significant perfusion abnormalities FUNCTIONAL RESULTS (calculated via Gated SPECT) Stress Image LV EF (%): 84 Stress EDV (mL):96 TID: 1.11 Stress ESV (mL):15 FUNCTIONAL FINDINGS: Segmental wall motion analysis revealing no gross wall motion abnormalities IMPRESSIONS 1. Unremarkable myocardial perfusion imaging. 2. Normal LV ejection fraction of 84%. 3. LV wall motion analysis revealing no gross wall motion abnormalities. 4. Normal LV volume Low probability for coronary ischemia, based on the above findings Dr Lester Briscoe MD FACC (Electronically Signed) Final Date: 13 August 2021 15:41 S
--- NOTE | 2021-08-13 09:10 | ECG_ITS ---
[facility] Test Date: 2021-08-13 Pat Name: Abdirahman Loo Department: Room: Gender: Female Silica Spray Mixer: Iza Galvez : 1975 Requested By: Gilmar Regalado Order Number: [id number] Marisa MD: Lester Briscoe M.D. Interpretive Statements NAME OF STUDY: LEXISCAN SESTAMIBI STRESS TEST INDICATION: Chest Pain, PROCEDURE: At the baseline, the EKG revealed normal sinus rhythm with poor R wave progression.. The baseline blood pressure was 140/95 mm Hg with a heart rate of 71 beats/min. Lexiscan was infused over a period of 20 seconds. A total of 0.4 milligrams of Lexiscan was infused. The stress phase was continued for a total of 5 minutes. Heart rate at the end of the stress phase was 104 with a blood pressure 164/101. The EKG at the peak infusion revealed no significant changes. Sestamibi was injected 20 seconds after the Lexiscan infusion. Blood pressure at the end of the recovery phase was 155/99 with a heart rate of 86 per minute. CONCLUSION: 1. No significant EKG changes with the LexiScan infusion 2. No LexiScan induced chest pain or cardiac arrhythmia 3. Normal blood pressure and heart rate response 4. Sestamibi/sestamibi perfusion scan pending; see separate report. Electronically Signed On 08-13-2021 13:34:40 CDT by Lester Briscoe M.D. [id number]
[2021-08-13] MEDS: regadenoson 0.4 Mg/5 ml Syringe IVP (11:05)
[2021-08-13] MEDS: ondansetron 2 mg/ML SDV 2 mL 4 MG IVP (11:05)
[2021-08-13 11:15] VITALS: BP 130/89; PULSE 89
== END 2021-08-13 08:47 | disposition home or self-care (01) ==
PROVIDERS: PCP Family Medicine; Visit Provider Family Medicine
DX: R05.9 Cough, unspecified (principal)
CPT/HCPCS: 78452; 93017; A9500; J2405; J2785

== ENCOUNTER 2021-12-01 09:01 | Outpatient (CLI) | payer OTHER, SELFPAY ==
--- NOTE | 2021-12-01 09:06 | MM_ITS ---
WS: [id number] DIAGNOSTIC BILATERAL DIGITAL BREAST TOMOSYNTHESIS MAMMOGRAPHY WITH CAD LEFT breast ultrasound, limited HISTORY: FELICIA BREAST LUMPS COMPARISON: 07/16/2018, 07/05/2018 and 05/09/2012 TECHNIQUE: Bilateral craniocaudad, mediolateral oblique, and mediolateral views are submitted with to mosynthesis and SM. Spot compression LEFT CC. Computer aided detection utilized. Breast composition: There are scattered areas of fibroglandular density. Palpable markers are placed in the medial and lateral LEFT breast in the areas of palpable abnormalities. No underlying abnormali ties. Benign calcifications within either breast. No palpable areas were identified in the RIGHT [address] for marking. No nipple retraction. LEFT breast ultrasound, limited. Ultrasound is directed to the palpable abnormalities in the LEFT breast directed by the patient at 6: 00, 9:00, 10:00 and towards the axilla. There are no masses identified. Normal appearance of the yon[address] st tissue. No distortion, cystic or solid mass or increased vascularity. Benign lymph nodes in the ax illa. MM/[place] [id number] IMPRESSION: BI-RADS: 2-Benign FOLLOW UP: 1 Year Follow-up Palpable areas correspond to a normal-appearing fibroglandular breast tissue.
== END 2021-12-01 09:02 | disposition home or self-care (01) ==
PROVIDERS: PCP Family Medicine; Visit Provider Family Medicine
DX: N63.10 Unspecified lump in the right breast, unspecified quadrant (principal); N63.20 Unspecified lump in the left breast, unspecified quadrant
CPT/HCPCS: 76642; 77062

== ENCOUNTER 2022-01-28 06:20 | Outpatient (CLI) | payer OTHER, SELFPAY ==
--- NOTE | 2022-01-28 | US_ITS ---
WS: [id number] TRANSABDOMINAL PELVIC AND TRANSVAGINAL PELVIC ULTRASOUND HISTORY: ABNORMAL BLEEDING COMPARISON: 02/06/2019 Uterus: 9.4 cm x 5.6 cm x 4.5 cm. Normal size anteverted uterus. There is heterogeneity within the my ometrium. Very slightly lobular appearance of the uterus. Subtle hypoechoic area in the RIGHT anterio r myometrium measures 7 x 9 x 5 mm. Very similar in appearance to the prior examination. Endometrium: 0.8 cm. Endometrium is normal size. There is loss of the normal junctional zone posterio rly. This could represent an area of adenomyosis. Right ovary: 2.5 cm x 2.2 cm x 1.7 cm. Normal size ovary and normal vascularity. Left ovary: Not visualized. Large amount of bowel gas in the LEFT adnexa. No free fluid in the cul-de-sac. Small nabothian cysts. US/US pelvic with transvaginal IMPRESSION: 1. Normal size endometrium. Very subtle loss of the normal junctional zone pos teriorly. This could be a very subtle area of focal adenomyosis. 2. Stable subcentimeter hypoechoic nodule in the myometrium. Probably a small cystic fibroid. 3. LEFT ovary not visualized.
== END 2022-01-28 06:21 | disposition home or self-care (01) ==
LOC: RAD 06:21
PROVIDERS: PCP Family Medicine; Visit Provider Family Medicine
DX: R10.2 Pelvic and perineal pain (principal); N93.8 Other specified abnormal uterine and vaginal bleeding
CPT/HCPCS: 76830; 76856

== ENCOUNTER → 2022-02-21 10:53 | Outpatient (BNVA) | payer OTHER, SELFPAY | PROVIDERS: PCP Family Medicine; Visit Provider Obstetrics & Gynecology | DX: R63.5 Abnormal weight gain (principal) | CPT/HCPCS: 83036; 83525; 84443; 85025 ==

== ENCOUNTER → 2022-05-03 08:04 | Day surgery (SDC) | payer OTHER, SELFPAY ==
[2022-05-02 15:25] VITALS: BMI 39.2
[2022-05-03] VITALS (13 sets, daily range): BP systolic 129–160; BP diastolic 74–108; PULSE 63–112; RESP 4–21; TEMP 36.3–36.8; O2SAT 94–100
[2022-05-03] MEDS: sodium chloride 0.9% 1,000 ML 30 ML IV (08:46)
--- NOTE | 2022-05-03 08:49 | ANES.PREANE2 ---
Pre-Anesthetic Assessment Height/Weight: Height 1.65 m Weight 107.048 kg Temp Pulse Resp BP Pulse Ox O2 Del Method 98.2 F 83 18 147/84 98 05/03/22 08:27 05/03/22 08:27 05/03/22 08:27 05/03/22 08:27 05/03/22 08:27 05/03/22 08:27 Preop Diagnosis: AUB Operation Date: 05/03/22 13:10 Proposed Procedures p Hysteroscopy, diation and curettage with Myosure 03743, 61991, 84130,N93.9(Not Applicable) - Rachel Shields MD s Dilation And Curettage (D&C)(Not Applicable) - Rachel Shields MD Familial anesthetic complications: None Was Beta Leanna taken within 24 hours: N/A Was Clonidine taken within 24 hours: N/A Last intake: Intake Last Liquid Date 05/02/22 Last Liquid Time 20:00 Last Solid Date 05/02/22 Last Solid Time 20:00 Social No alcohol and No tobacco Exam alert, oriented x 3, clear to auscultation bilaterally and regular rate & rhythm Airway Mallampati: Class III Dentition: full CV/HEM Arrythmia (tachycardia) and Hypertension Metabolic Morbid Obesity Anesthetic Plan ASA status: 2 Anesthesia: General Risk of > 500 ml blood loss (7ml/kg in children): No Medications/Allergies Home Medications Medication Instructions Recorded Confirmed Last Taken Type tirzepatide 2.5 mg/0.5 mL 2.5 mg SUBCUT Q7D 04/18/22 05/02/22 04/24/22 History subcutaneous pen injector (Mounjaro) Allergies Allergy/AdvReac Type Severity Reaction Status Date / Time No Known Allergies Allergy Verified 05/02/22 08:06 Current Medications Generic Name Dose Route Start Last Admin Trade Name Freq PRN Reason Stop Dose Admin Sodium Chloride 1,000 mls @ 30 mls/hr 05/03/22 08:15 05/03/22 08:46 Sodium Chloride 0.9% IV 05/04/22 08:14 30 mls/hr .Q24H PAYAM Administration PFSH Anesthesia Medical History (Updated 05/02/22 @ 14:05 by Rachel Shields MD) Arthralgia of both hands Chest pain Encounter for screening for other viral diseases HTN (hypertension) Inflammatory arthritis Raynaud's disease Surgical History (Updated 05/02/22 @ 14:05 by Rachel Shields MD) History of laparoscopic cholecystectomy History of tubal ligation S/P section S/P laminectomy Family History Mother Breast cancer Ovarian cancer Uterine cancer Father Heart disease Hypertension Grandmother Ovarian cancer maternal Uterine cancer maternal Denies family history of Colon cancer Diabetes Hypercholesteremia Thyroid disease Stroke Data Anesthesia Cardiac Studies: Echocardiogram Ultrasound 04/01/19 Sestamibi Stress Test (Cardiology) 08/13/21 Cardiac Event Monitor 01/27/20
--- NOTE | 2022-05-03 10:10 | W.PM.OPSUD ---
Surgery/Procedure H&P Update DATE OF PROCEDURE: May 03, 2022 DATE H&P PERFORMED: 05/02/22 H&P UPDATE INFORMATION: I have reviewed H&P completed within last 30 days, I have examined patient prior to procedure and No changes to prior documentation PREOP DIAGNOSIS: AUB PLANNED PROCEDURE: Operation Date: 05/03/22 13:10 Proposed Procedures p Hysteroscopy, diation and curettage with Myosure 12492, 93400, 31334,N93.9(Not Applicable) - Rachel Shields MD s Dilation And Curettage (D&C)(Not Applicable) - Rachel Shields MD Related Problem List Diagnoses (1) Abnormal uterine bleeding (AUB):
[2022-05-03] MEDS: ceFAZolin 2,000 MG in sodium chloride 0.9% (plus) 50 ML 100 MG IV (14:20)
--- NOTE | 2022-05-03 15:01 | P.OP_ITS ---
Operative Report Date of procedure: May 03, 2022 Pre-op diagnosis: Preop Diagnosis AUB Post-op diagnosis: same Post-op findings: uterine polyps and fibrois, grade 2 prolapse Procedure done: hysteroscopy, dilation and curettage with myosure Specimens removed/disposition: endometrial curettings to pathology Surgeon: Rachel Shields Anesthesia: General Estimated blood loss (mL): 5 IV fluids (mL): 500 Complications: none Condition: stable Disposition: PACU Procedure: The patient was taken to the operating room where monitored anesthesia was administered and to be adequate. She was prepped and draped in the normal sterile fashion in the dorsal lithotomy position in [facility]. A weighted speculum was placed into the vagina and the anterior lip of the cervix grasped with a single-tooth tenaculum. The uterus was sounded to 10 cm. The cervix was dilated to 16 Portuguese. The hysteroscope was advanced into the endometrial cavity. There was excessive tissue. There were 2 polyps and what appeared to be anterior fibroid visualized. The MyoSure device was activated and the tissue was removed. Pictures were taken pre and post procedure. All instruments were removed. The patient tolerated the procedure well. Sponge lap and needle counts were correct x3. She was taken to the recovery room in stable condition.
--- NOTE | 2022-05-03 15:05 | PM.DCS ---
Discharge Providers Date of Admission: 05/03/22 Date of Discharge: May 03, 2022 Attending Provider at Admission: Dr. Shields Attending Provider at Discharge: Rachel Shields MD Primary Care Provider: Jannette Cook MD Diagnoses at Discharge Discharge Diagnosis (1) Abnormal uterine bleeding (AUB): Status: Acute Reason for Visit Reason for Visit: N93.9 Hospital Course Hospital Course The patient was admitted for surgery. She did well postoperatively and was ready for discharge. Discharge Data Studies Completed and Pending Pending at discharge Category Date Time Status ORHCG [OR HCG Qualitative Urine] Routine Lab 05/03/22 08:14 Ordered Vitals Last Vital Signs Temp 98.2 F 05/03/22 08:27 Pulse 83 05/03/22 08:27 Resp 18 05/03/22 08:27 BP 147/84 05/03/22 08:27 Pulse Ox 98 05/03/22 08:27 O2 Del Method 05/03/22 08:27 Discharge Plan Discharge Patient Disposition: Home Condition: Stable Prescriptions: Continued Mounjaro 2.5 mg/0.5 mL Pen Injector 2.5 mg SUBCUT Q7D Discharge Orders: Discharge Order (Routine); Ordered 05/03/22 Ordered By: Rachel Shields Discharge Attestations Time Spent in Discharge Care*: less than 30 min Quality Metrics Clinical Quality Measures [ No reported AMI, CVA or VTE this stay] Coding Level of Care Code Acute Code for Chg Fwd Diagnoses Abnormal uterine bleeding (AUB) N93.9
[2022-05-03] MEDS: meperidine 50 mg/mL INJ 12.5 MG IVP (15:08)
[2022-05-03] MEDS: ondansetron 2 mg/ML SDV 2 mL 4 MG IVP (15:18)
--- NOTE | 2022-05-03 15:26 | ANE.PACU2 ---
Inpatient post-anesthesia follow up: Airway intact: Yes Vital signs: Temperature 98.2 F Pulse Rate 83 Respiratory Rate 18 Blood Pressure 147/84 Pulse Oximetry 98 Oxygen Delivery Me thod Room Air Oxygen Flow Rate Fraction of Inspir ed Oxygen Hydration adequate: Yes Nausea and vomiting: No Pain level: 1 Mental status: Baseline
--- NOTE | 2022-05-03 16:35 | SUR.PHASEII ---
16:30 PT WITH INCREASING CRAMPING PAIN. PT REVIEWED WITH DOCTOR Puja. IV PAIN MEDICATION ORDERED.
[2022-05-03] MEDS: fentaNYL 50 mcg/mL INJ 2mL 25 MCG IVP (17:15)
[2022-05-11 06:52] LABS: OR HCG Qualitative Urine Negative (Negative)
== END | disposition home or self-care (01) ==
PROVIDERS: Anesthesiology; PCP Family Medicine; Visit Provider Obstetrics & Gynecology
PROC: 0UDB8ZZ Extraction of Endometrium, Via Natural or Artificial Opening Endoscopic (ICD-10-PCS; CPT 58558; principal; 2022-05-03 13:10)
PROC: (CPT 58120; 2022-05-03 13:10)
DX: N93.9 Abnormal uterine and vaginal bleeding, unspecified (principal); N84.0 Polyp of corpus uteri; N81.2 Incomplete uterovaginal prolapse
CPT/HCPCS: 58558; 81025; 84703; 88305; J0690; J1100; J1200; J1885; J2175; J2250; J2405; J2704; J2710; J3010; J3490; J7030

== ENCOUNTER 2022-09-23 00:20 | Emergency (ER) | payer OTHER, SELFPAY ==
[2022-09-23 00:21] VITALS: BMI 34.7
--- NOTE | 2022-09-23 00:32 | ECG_ITS ---
[facility] Test Date: 2022-09-23 Pat Name: Abdirahman Loo Department: Room: Gender: Female Engineer Assistant: : 1975 Requested By: Rome Corcoran Order Number: [id number] Marisa MD: Elena Osuna M.D. Measurements Intervals [place] Rate: 71 P: 27 ND: 151 QRS: 14 QRSD: 92 T: 31 QT: 363 QTc: 395 Interpretive Statements SINUS RHYTHM Compared to ECG 07/09/2021 12:09:42 No significant changes Electronically Signed On 09-23-2022 8:09:11 CDT by Elena Osuna M.D. [id number]
--- NOTE | 2022-09-23 00:33 | ED_ITS ---
HPI - Nausea/Vomiting/Diarrhea General: Chief complaint: Nausea/Vomiting/Diarrhea Stated complaint: N/V Time Seen by Provider: 09/23/22 00:21 History of Present Illness: A 47-year-old female comes in today with complaints of nausea vomiting and diarrhea starting this evening. Patient states that she had gotten a deep tissue massage and then a gone home and after getting home started to feel ill where she started throwing up and having bouts of diarrhea. For the last 4 hours patient's been ill with these episodes. Patient had 2 episodes where she passed out. After the second episode her called EMS and had her transported to the ER. Patient is alert and oriented at this time patient has a history of arrhythmia and hypertension. Patient does take Mounjaro for weight loss. And she also takes hydrochlorothiazide for her hypertension. Patient used to be on a beta-kenan and amlodipine at 1 time for the arrhythmia. Patient reports some epigastric discomfort but relates that to her nausea and vomiting. MD elicited complaint: nausea, vomiting and diarrhea Pertinent past history: abdominal surgery (Gallbladder, appendix, hernia repair) Onset (ago): hour(s) Description of vomiting: watery Associated nausea: Yes Associated abdominal pain: Yes Location of pain: Epigastric Radiation: does not radiate Pain consistency: intermittent Severity: moderate Quality: cramping Exacerbating factors: vomiting Relieving factors: none Associated symtoms: Reports nausea Review of Systems GI: Reports: nausea PFSH ED PFSH: Medical History Arthralgia of both hands Chest pain Encounter for screening for other viral diseases HTN (hypertension) Inflammatory arthritis Raynaud's disease Surgical History History of laparoscopic cholecystectomy History of tubal ligation S/P section S/P laminectomy Family History Mother Breast cancer Ovarian cancer Uterine cancer Father Heart disease Hypertension Grandmother Ovarian cancer maternal Uterine cancer maternal Denies family history of Colon cancer Diabetes Hypercholesteremia Thyroid disease Stroke Social History Substance/Drug Use: never Physical Exam Const: COMMON NORMALS: alert HENMT: COMMON NORMALS: normocephalic HEAD & SCALP: normocephalic Neck/C-Spine: COMMON NORMALS: full ROM Resp: COMMON NORMALS: normal respiratory effort and clear to auscultation bilaterally AUSCULTATION: clear to auscultation bilaterally Cardio: COMMON NORMALS: regular rate and regular rhythm RATE: regular rate RHYTHM: regular rhythm GI: COMMON NORMALS: Soft to palpation PALPATION: Yes Soft to palpation and Yes Tenderness to palpation present (GI) (Midepigastric) Extremity: COMMON NORMALS: normal to inspection Neuro: SENSORIUM/ORIENTATION: Yes alert Skin: COMMON NORMALS: turgor normal GENERAL SKIN EXAM: turgor normal Course Vital Signs: Vital signs: Vital Signs Pulse Rate 81 09/23/22 00:36 Respiratory Rate 19 H 09/23/22 00:36 Blood Pressure 152/97 09/23/22 00:36 Pulse Oximetry 97 09/23/22 00:36 MDM - Nausea/Vomiting/Diarrhea Medical Decision Making Patient has had 4 hours of nausea vomiting and diarrhea with 2 episodes of syncope. After the second episode spouse called the EMS in which patient woke up when EMS had arrived. Patient appears unwell but not toxic. Abdomen soft with some epigastric tenderness. Skin is warm and dry. Vital signs are normal except for some elevated blood pressure. Heart rates regular in the 70s. Differential diagnosis includes but not limited to ACS, gastroenteritis, bile duct stone, gastritis, PUD, viral syndrome, dehydration. CBC had some mild leukocytosis at 11., And mild anemia with a hemoglobin of 11.1. Sodium was 136 on CMP and potassium was 3.0. Creatinine was 0.8. Troponin was normal. EKG was normal sinus rhythm. Believe the patient had a bout of gastroenteritis and the episodes of syncope was secondary to vasovagal response. Patient was treated for her low potassium with IV fluids of 1500 of normal saline, and 40 mg of liquid potassium. Patient be continued on ondansetron and loperamide for diarrhea and nausea. Patient reported understanding of care plan and need for follow-up or return to the ER. Lab Data 09/23/22 00:41 09/23/22 00:41 Laboratory Results WBC 11.1 10^3/uL (4.0-10.0) H 09/23/22 00:41 RBC 5.15 10^6/uL (4.1-5.3) 09/23/22 00:41 Hgb 11.1 g/dL (11.5-15.3) L 09/23/22 00:41 Hct 36.8 % (37.0-47.0) L 09/23/22 00:41 MCV 71.5 fl (81-99) L 09/23/22 00:41 MCH 21.6 pg (28.0-34.0) L 09/23/22 00:41 MCHC 30.2 g/dL (30.0-36.0) 09/23/22 00:41 RDW 18.7 % (12.1-15.1) H 09/23/22 00:41 Plt Count 283 10^3/cmm (130-400) 09/23/22 00:41 MPV 10.6 fL (7.4-10.4) H 09/23/22 00:41 Neut % (Auto) 85.0 % 09/23/22 00:41 Lymph % (Auto) 6.9 % 09/23/22 00:41 [place] % (Auto) 7.1 % 09/23/22 00:41 Eos % (Auto) 0.4 % 09/23/22 00:41 Baso % (Auto) 0.3 % 09/23/22 00:41 Neut # (Auto) 9.45 10^3/uL (1.8-7.7) H 09/23/22 00:41 Lymph # (Auto) 0.8 10^3/uL (0.8-4.8) 09/23/22 00:41 [place] # (Auto) 0.8 10^3/uL (0.2-0.9) 09/23/22 00:41 Eos # (Auto) 0.1 10^3/uL (0.0-0.8) 09/23/22 00:41 Baso # (Auto) 0.0 10^3/uL (0.0-0.1) 09/23/22 00:41 Nucleated RBC % (auto) 0 % 09/23/22 00:41 Nucleated RBCs # 0.0 /100WBC 09/23/22 00:41 Sodium 136 mmol/L (136-145) 09/23/22 00:41 Potassium 3.0 mmol/L (3.5-5.1) L 09/23/22 00:41 Chloride 101 mmol/L (98-107) 09/23/22 00:41 Carbon Dioxide 20 mmol/L (22-29) L 09/23/22 00:41 Anion Gap 18.0 (5-19) 09/23/22 00:41 BUN 10 mg/dL (6-20) 09/23/22 00:41 Creatinine 0.8 mg/dL (0.5-0.9) 09/23/22 00:41 GFR Calculation 77.2 mL/min (90-130) L 09/23/22 00:41 Glucose 92 mg/dL (65-115) 09/23/22 00:41 Calculated Osmolality 281 mOsm/kg (285-295) L 09/23/22 00:41 Calcium 9.0 mg/dL (8.5-10.5) 09/23/22 00:41 Total Bilirubin 0.5 mg/dL (0.15-1.2) 09/23/22 00:41 AST 20 U/L (0-32) 09/23/22 00:41 ALT 14 U/L (0-33) 09/23/22 00:41 Alkaline Phosphatase 74 U/L (35-105) 09/23/22 00:41 Troponin T Baseline 6 ng/L (0-10) 09/23/22 00:41 Total Protein 7.0 g/dL (6.6-8.7) 09/23/22 00:41 Albumin 4.0 g/dL (3.5-5.2) 09/23/22 00:41 Globulin 3.0 g/dL (1.3-4.6) 09/23/22 00:41 Lipase 32 U/L (13-60) 09/23/22 00:41 HCG, Qual Negative (Negative) 09/23/22 00:41 EKG Data EKG 1: EKG interpretation date: 09/23/22 EKG interpretation time: 00:46 Prior EKG tracings: not available for review Interpretation: EKG shows a sinus rhythm with a regular rate at [address] elevation or ectopy is noted. No prior exam was available for comparison. Computer interpreted as normal sinus rhythm. Discharge Plan Discharge Patient Disposition: Home Clinical Impression: Gastroenteritis Condition: Stable Prescriptions: New ondansetron 4 mg tablet,disintegrating 4 mg PO Q8H PRN (Reason: nausea and vomiting) Qty: 12 0RF No Action cephalexin 500 mg capsule 500 mg PO BID 7 Days Qty: 14 0RF Mounjaro 2.5 mg/0.5 mL Pen Injector 2.5 mg SUBCUT Q7D Discharge Orders: Discharge ED (Routine); Ordered 09/23/22 Ordered By: Rome Baer Referrals: Jannette Cook MD [Primary Care Provider] - Discharge Diet: Advance as tolerated Discharge Activity: Increase activity as tolerated Patient Instructions: Dehydration (ED), Gastroenteritis (ED) Activity Restrictions/Additional Instructions: Start with clear liquid diet. Drink plenty of water and fluids. Use iwyy-khr-budxadp Imodium to help with diarrhea. Use ondansetron 4 mg 1 every 8 hours as needed for nausea or vomiting. Use an electrolyte solution until diarrhea resolves. Follow-up with primary care for further instructions. Return to ED for new concerns or worsening symptoms such as blood in vomit or stool, fever greater than 100.4, severe abdominal pain, or shortness of breath. Coding Level of Care Code ED Smoking Tobacco Packer Hand for Lela Fowler
[2022-09-23 00:36] VITALS: BP 152/97; PULSE 81; RESP 19; O2SAT 97
[2022-09-23 00:50] LABS: Basophils % 0.3 %; Eosinophils # 0.1 10^3/uL (0.0-0.8); Eosinophils % 0.4 %; Hematocrit 36.8 % (37.0-47.0); Hemoglobin 11.1 g/dL (11.5-15.3); Lymphocytes # 0.8 10^3/uL (0.8-4.8); Lymphocytes % 6.9 %; Mean Corpuscular HGB Conc 30.2 g/dL (30.0-36.0); Mean Corpuscular Hemoglobin 21.6 pg (28.0-34.0); Mean Corpuscular Volume 71.5 fl (81-99); Mean Platelet Volume 10.6 fL (7.4-10.4); Monocytes # 0.8 10^3/uL (0.2-0.9); Monocytes % 7.1 %; Neutrophils # 9.45 10^3/uL (1.8-7.7); Nucleated Red Blood Cells % 0 %; Platelet Count 283 10^3/cmm (130-400); Red Blood Count 5.15 10^6/uL (4.1-5.3); Red Cell Distribution Width 18.7 % (12.1-15.1); White Blood Count 11.1 10^3/uL (4.0-10.0)
[2022-09-23] MEDS: ondansetron 2 mg/ML SDV 2 mL 4 MG IVP (00:51)
[2022-09-23] MEDS: sodium chloride 0.9% 1,000 ML 999 ML IV (00:51)
[2022-09-23 01:03] LABS: HCG, Serum Qual Negative (Negative)
[2022-09-23 01:10] LABS: Troponin(5th) Baseline 6 ng/L (0-10)
[2022-09-23 01:11] LABS: Alanine Aminotransferase 14 U/L (0-33); Alkaline Phosphatase 74 U/L (35-105); Aspartate Amino Transferase 20 U/L (0-32); Blood Urea Nitrogen 10 mg/dL (6-20); Carbon Dioxide 20 mmol/L (22-29); Chloride 101 mmol/L (98-107); Glomerular Filtration Rate 77.2 mL/min (90-130); Glucose 92 mg/dL (65-115); Lipase 32 U/L (13-60); Osmolality Calculated 281 mOsm/kg (285-295); Sodium 136 mmol/L (136-145); Total Bilirubin 0.5 mg/dL (0.15-1.2)
[2022-09-23] MEDS: diphenoxylate/atropine Tablet 2 TAB PO (02:00)
[2022-09-23] MEDS: potassium chloride oral liq 20 mEq/15 mL UDC 40 MEQ PO (02:00)
[2022-09-23] MEDS: famotidine 20 mg/2 mL INJ 40 MG IVP (02:00)
== END 2022-09-23 02:26 | disposition home or self-care (01) ==
PROVIDERS: Emergency Provider Nurse Practitioner Family; PCP Family Medicine
DX: K52.9 Noninfective gastroenteritis and colitis, unspecified (principal); D64.9 Anemia, unspecified; R55 Syncope and collapse
CPT/HCPCS: 36415; 80053; 83690; 84484; 84703; 85025; 93005; 96361; 96374; 96375; 99284; J2405; J3490; J7030

== ENCOUNTER → 2023-04-30 10:46 | Outpatient (BNVA) | payer BC, SELFPAY | PROVIDERS: PCP Family Medicine; Visit Provider Emergency Medicine | DX: J02.9 Acute pharyngitis, unspecified (principal) | CPT/HCPCS: 87071; 87880 ==

== ENCOUNTER 2023-05-29 23:58 | Emergency (ER) | payer BC, SELFPAY ==
[2023-05-29 23:59] VITALS: BP 179/111; PULSE 75; RESP 18; TEMP 36.4; O2SAT 100; BMI 27.4
--- NOTE | 2023-05-30 | CTR_ITS ---
PROCEDURE INFORMATION: Exam: CT Abdomen And Pelvis With Contrast Exam date and time: 05/30/2023 12:15 AM Age: 47 years old Clinical indication: Abdominal pain; Generalized; Prior surgery; Surgery date: 6+ months; Surgery type: Gb/appy, csection, tubal, cyst removed from both ovaries; Additional info: Abd mass/pain TECHNIQUE: Imaging protocol: Computed tomography of the abdomen and pelvis with contrast. Radiation optimization: All CT scans at this facility use at least one of these dose optimization techniques: automated exposure control; mA and/or kV adjustment per patient size (includes targeted exams where dose is matched to clinical indication); or iterative reconstruction. Contrast material: OMNI 350; Contrast volume: 100 ml; Contrast route: INTRAVENOUS (IV); COMPARISON: US pelv w/transvag [id number] 01/28/2022 6:40 AM RADIATION DOSE METRICS: Total DLP (mGy-cm): 617.47 FINDINGS: Liver: 2.1 cm hypodense lesion in the hepatic dome, discontinuous peripheral nodular enhancement, most consistent with hemangioma. Otherwise unremarkable. Gallbladder and bile ducts: Cholecystectomy. Pancreas: Pancreas is unremarkable. No main duct dilation. Spleen: Spleen is unremarkable. Adrenal glands: No nodules. Kidneys and ureters: No mass. No hydroureteronephrosis. No urinary tract calculi. Stomach and bowel: No bowel obstruction. Appendix: Appendix is not visualized. Intraperitoneal space: Unremarkable. No free air. No significant fluid collection. Vasculature: No aortic aneurysm. Lymph nodes: No enlarged lymph nodes. Urinary bladder: Bladder is unremarkable as visualized. Reproductive: Probable nabothian cyst in the cervix. Otherwise unremarkable Bones/joints: No acute fracture. No aggressive osseous lesions. Soft tissues: Unremarkable. CT/CT abdomen pelvis w con* [id number] IMPRESSION: No acute findings.
--- NOTE | 2023-05-30 00:02 | ED_ITS ---
HPI - Abdominal Pain 2 General: Chief Complaint: Abdominal Pain Stated Complaint: abd pain Time Seen by Provider: 05/30/23 00:00 History of Present Illness: 47-year-old female presents emergency de partment complaints of abdominal pain. She states she has a abdominal mass to the left lower quadrant that she feels like is getting larger over the previous 1 hour. She states it is palpable and pulsatile. 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 She states she does have associated nausea and vague chest discomfort. She denies hematic emesis or hematochezia. Associated Symptoms: Reports nausea Review of Systems 2 General: Reports: 10 or more systems reviewed and unremarkable except in HPI and below GI: Reports: abdominal pain and nausea PFSH ED 2 PFSH: Medical History Arthralgia of both hands HTN (hypertension) Raynaud's disease Encounter for screening for other viral diseases Inflammatory arthritis Chest pain Surgical History History of laparoscopic cholecystectomy History of tubal ligation S/P section S/P laminectomy Family History Mother Breast cancer Ovarian cancer Uterine cancer Father Heart disease Hypertension Grandmother Ovarian cancer maternal Uterine cancer maternal Denies family history of Colon cancer Diabetes Hypercholesteremia Thyroid disease Stroke Social History Substance/Drug Use: never Physical Exam 2 Narrative: EXAM NARRATIVE: Constitutional: the patient appears well nourished and with normal development. Vital signs reviewed as documented. HENMT: Normocephalic, atraumatic. External ears normal appearance without drainage. Nose without drainage, normal appearance. Mucus membranes moist. Neck is supple, No jugular venous distension, trachea is midline, no appreciable carotid bruits. No lymphadenopathy. No meningeal signs. Flexion, extension and lateral rotation is without pain. Eyes: Pupils are equal, round, reactive to light and accommodation. No scleral icterus. Extra-ocular movement are intact. Thorax is symmetrical and with equal rise and fall with respirations. Resp: Lungs are clear to auscultation. No wheezes, rales, crackles or ronchi at present. Cardio: Regular rate and rhythm. Positive S1, S2. No appreciable murmurs, rubs or gallops. GI: Abdominal exam reveals normal bowel sounds to all quadrants. No organomegaly. Patient does have a pulsatile palpable mass to the left lower quadrant of the abdomen. No hepatomegally appreciated. Soft, non-tender to palpation. Extremity: Extremities are non-edematous and both femoral and pedal pulses are 2+ and equal bilaterally. Moves all extremities well, sensation in all extremities. Neuro: Alert and oriented x4, person, place, time and situation. Cranial nerves II through XII are grossly intact, there is no focal neurological deficits that I can appreciate at present. Sensation intact to all extremities. 2-point discrimination intact. Light touch intact to all extremities. Motor strength in the upper and lower extremities are equal and bilateral 5/5. Psych: Cooperative, calm, normal thought process, appropriate judgment. Skin: No lesions, rashes. No gross abnormalities noted. Back: Symmetrical, no obvious deformity, No CVA tenderness Course 2 Vital Signs: Vital signs: Vital Signs Temperature 97.5 F L 05/29/23 23:59 Pulse Rate 98 05/30/23 01:02 Respiratory Rate 16 05/30/23 01:02 Blood Pressure 120/76 05/30/23 01:02 Pulse Oximetry 99 05/30/23 01:02 Oxygen Delivery Me thod Room Air 05/29/23 23:59 MDM - Abdominal Pain Medical Decision Making Physical exam completed and documented I will obtain a CBC CMP PT PTT INR as well as a CT abdomen pelvis with IV contrast. Patient is hypertensive in the emergency department and I will provide her IV hydralazine to lower her blood pressure. Will obtain twelve-lead EKG as well as cardiac enzymes. Medical Records I reviewed the patient's medical records. Lab Data I reviewed the patient's lab results. 05/30/23 00:10 05/30/23 00:10 Labs/Radiology: Radiology Impressions Abdomen/Pelvis CT 05/30/23 00:00 IMPRESSION: No acute findings. Laboratory Results WBC 7.55 10^3/uL (3.29-11.43) 05/30/23 00:10 RBC 4.90 10^6/uL (3.85-5.65) 05/30/23 00:10 Hgb 11.90 g/dL (11.27-16.99) 05/30/23 00:10 Hct 37.3 % (36-47) 05/30/23 00:10 MCV 76.1 fl (85-98) L 05/30/23 00:10 MCH 24.3 pg (27-33) L 05/30/23 00:10 MCHC 31.9 g/dL (30-55) 05/30/23 00:10 RDW 17.1 % (12.1-15.1) H 05/30/23 00:10 Plt Count 277 10^3/cmm (157-399) 05/30/23 00:10 MPV 10.5 fL (7.4-10.4) H 05/30/23 00:10 Neut % (Auto) 52.9 % 05/30/23 00:10 Lymph % (Auto) 36.0 % 05/30/23 00:10 [place] % (Auto) 7.8 % 05/30/23 00:10 Eos % (Auto) 2.3 % 05/30/23 00:10 Baso % (Auto) 0.7 % 05/30/23 00:10 Neut # (Auto) 4.00 10^3/uL (1.8-7.7) 05/30/23 00:10 Lymph # (Auto) 2.7 10^3/uL (0.8-4.8) 05/30/23 00:10 [place] # (Auto) 0.6 10^3/uL (0.2-0.9) 05/30/23 00:10 Eos # (Auto) 0.2 10^3/uL (0.0-0.8) 05/30/23 00:10 Baso # (Auto) 0.1 10^3/uL (0.0-0.1) 05/30/23 00:10 Nucleated RBC % (auto) 0 % 05/30/23 00:10 Nucleated RBCs # 0.0 /100WBC 05/30/23 00:10 PT 13.20 SECONDS (12.1-14.9) 05/30/23 00:10 INR 0.97 (0.8-1.2) 05/30/23 00:10 APTT 29.5 SECONDS (23.9-36.7) 05/30/23 00:10 Sodium 139 mmol/L (136-145) 05/30/23 00:10 Potassium 3.2 mmol/L (3.5-5.1) L 05/30/23 00:10 Chloride 101 mmol/L (98-107) 05/30/23 00:10 Carbon Dioxide 29 mmol/L (22-29) 05/30/23 00:10 Anion Gap 12.2 (5-19) 05/30/23 00:10 BUN 13 mg/dL (6-20) 05/30/23 00:10 Creatinine 0.6 mg/dL (0.5-0.9) 05/30/23 00:10 GFR Calculation 107.6 mL/min (90-130) 05/30/23 00:10 Glucose 82 mg/dL (65-115) 05/30/23 00:10 Calculated Osmolality 287 mOsm/kg (285-295) 05/30/23 00:10 Calcium 9.4 mg/dL (8.5-10.5) 05/30/23 00:10 Total Bilirubin 0.2 mg/dL (0.15-1.2) 05/30/23 00:10 AST 18 U/L (0-32) 05/30/23 00:10 ALT 10 U/L (0-33) 05/30/23 00:10 Alkaline Phosphatase 88 U/L (35-105) 05/30/23 00:10 Troponin T Baseline < 6 ng/L (0-10) 05/30/23 00:10 Total Protein 6.5 g/dL (6.6-8.7) L 05/30/23 00:10 Albumin 4.2 g/dL (3.5-5.2) 05/30/23 00:10 Globulin 2.3 g/dL (1.3-4.6) 05/30/23 00:10 HCG, Qual Negative (Negative) 05/30/23 00:35 Urine Color Light yellow (Yellow) 05/30/23 00:35 Urine Appearance Clear (CLEAR) 05/30/23 00:35 Urine pH 7 (5-7) 05/30/23 00:35 Ur Specific [place] 1.005 (1.005-1.030) 05/30/23 00:35 Urine Protein Neg (Negative) 05/30/23 00:35 Urine Glucose (UA) Norm (Normal) 05/30/23 00:35 Urine Ketones Negative (Negative) 05/30/23 00:35 Urine Blood Neg (Negative) 05/30/23 00:35 Urine Nitrate Negative (Negative) 05/30/23 00:35 Urine Bilirubin Neg (Negative) 05/30/23 00:35 Urine Urobilinogen Neg mg/dL (Negative) 05/30/23 00:35 Ur Leukocyte Esterase Negative (Negative) 05/30/23 00:35 All radiology interpretation(s) finalized by discharge EKG Data EKG 1: Interpretation: EG obtained at 00 25 and reviewed at 00 30 demonstrates sinus rhythm ventricular rate 89, ID interval 178 QRS duration 87, QT [address] elevation or depression at present to demonstrate acute ischemia or infarction. Discharge Plan Discharge Patient Disposition: Home Clinical Impression: Hypertension, uncontrolled, Acute hypokalemia Abdominal pain Qualifiers: Abdominal location: left lower quadrant Qualified Code(s): R10.32 - Left lower quadrant pain Hemangioma Qualifiers: Hemangioma site: intra-abdominal structure Qualified Code(s): D18.03 - Hemangioma of intra-abdominal structures Condition: Stable Prescriptions: No Action amoxicillin 500 mg tablet 1,000 mg PO BID 10 Days Qty: 40 0RF ibuprofen 600 mg tablet 600 mg PO Q8H PRN (Reason: pain) Qty: 30 0RF ondansetron 4 mg tablet,disintegrating 4 mg PO Q8H PRN (Reason: nausea and vomiting) Qty: 12 0RF Mounjaro 2.5 mg/0.5 mL Pen Injector 2.5 mg SUBCUT Q7D Discharge Orders: Discharge ED (Routine); Ordered 05/30/23 Ordered By: Nguyễn Whelan Referrals: Jannette Cook MD [Primary Care Provider] - Discharge Diet: Usual diet Discharge Activity: Resume usual activity Patient Instructions: Abdominal Pain (ED), Opioid Safety, Pain Management Activity Restrictions/Additional Instructions: Activity Restrictions/Additional Instructions: Thank you for choosing [facility] for your healthcare needs today. Please realize that you were seen in the Emergency Department and that we are providing you with an emergency medical screening exam and this may not be a complete and all inclusive of all the testing and or medical work-up that you may need to determine your ailment or severity of your illness. It is very important that you follow-up as instructed with your Primary care provider or Specialist for additional evaluation and to discuss your medical treatment plan. You may return to the Emergency Department should you have concerns or if your condition changes or worsens in any way. Coding Level of Care Code ED Restaurant Supervisor for Lela Fowler
[2023-05-30] MEDS: hyDRALAzine 20 mg/mL INJ 1 mL 10 MG IVP (00:12)
[2023-05-30 00:17] LABS: Basophils # 0.1 10^3/uL (0.0-0.1); Basophils % 0.7 %; Eosinophils # 0.2 10^3/uL (0.0-0.8); Eosinophils % 2.3 %; Hematocrit 37.3 % (36-47); Lymphocytes # 2.7 10^3/uL (0.8-4.8); Mean Corpuscular HGB Conc 31.9 g/dL (30-55); Mean Corpuscular Hemoglobin 24.3 pg (27-33); Mean Corpuscular Volume 76.1 fl (85-98); Mean Platelet Volume 10.5 fL (7.4-10.4); Monocytes # 0.6 10^3/uL (0.2-0.9); Monocytes % 7.8 %; Neutrophils % 52.9 %; Nucleated Red Blood Cells % 0 %; Platelet Count 277 10^3/cmm (157-399); Red Cell Distribution Width 17.1 % (12.1-15.1); White Blood Count 7.55 10^3/uL (3.29-11.43)
[2023-05-30] MEDS: iohexol 350 mg/mL 500 mL Btl (per mL) IV (00:17)
[2023-05-30 00:23] VITALS: BP 141/93; PULSE 100; RESP 14; O2SAT 100
--- NOTE | 2023-05-30 00:25 | ECG_ITS ---
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 Measurements Intervals [facility] Rate: 89 P: 67 AL: 178 QRS: 8 QRSD: 87 T: 25 QT: 358 QTc: 438 Interpretive Statements SINUS RHYTHM POSSIBLE LEFT ATRIAL ENLARGEMENT [-0.1mV P-WAVE IN V1/V2] LOW QRS VOLTAGE IN PRECORDIAL LEADS [QRS DEFLECTION < 1.0 mV IN CHEST LEADS] Compared to ECG 09/23/2022 00:30:24 Low QRS voltage now present Electronically Signed On 05-30-2023 21:36:14 CDT by Iraj Swain M.D. [id number]
[2023-05-30 00:29] LABS: INR 0.97 (0.8-1.2)
[2023-05-30 00:30] LABS: Partial Thromboplastin Time 29.5 SECONDS (23.9-36.7)
[2023-05-30 00:38] LABS: Alanine Aminotransferase 10 U/L (0-33); Albumin Level 4.2 g/dL (3.5-5.2); Alkaline Phosphatase 88 U/L (35-105); Anion Gap 12.2 (5-19); Aspartate Amino Transferase 18 U/L (0-32); Blood Urea Nitrogen 13 mg/dL (6-20); Calcium 9.4 mg/dL (8.5-10.5); Carbon Dioxide 29 mmol/L (22-29); Chloride 101 mmol/L (98-107); Creatinine Clr Calc Pharmacy 118.6241; Globulin 2.3 g/dL (1.3-4.6); Glomerular Filtration Rate 107.6 mL/min (90-130); Glucose 82 mg/dL (65-115); Osmolality Calculated 287 mOsm/kg (285-295); Potassium 3.2 mmol/L (3.5-5.1); Sodium 139 mmol/L (136-145); Total Bilirubin 0.2 mg/dL (0.15-1.2); Total Protein 6.5 g/dL (6.6-8.7)
[2023-05-30 00:40] LABS: HCG Qualitative Urine. Negative (Negative)
[2023-05-30 00:42] LABS: Troponin(5th) Baseline < 6 ng/L (0-10)
[2023-05-30 00:42] LABS: Add Urine Microscopic? NO; Bilirubin Urine Neg (Negative); Blood Urine Neg (Negative); Glucose Urine UA Norm (Normal); Ketones Urine Negative (Negative); Leukocyte Esterase Urine Negative (Negative); Nitrate Urine Negative (Negative); Protein Urine Neg (Negative); Specific Gravity, Urine 1.005 (1.005-1.030); Urine Appearance Clear (CLEAR); Urine Color Light yellow (Yellow); Urobilinogen Urine Neg (Negative); pH Urine 7 (5-7)
[2023-05-30 00:44] LABS: Charge for UA Resulting for Rev
[2023-05-30 00:50] VITALS: BP 134/80; PULSE 97; RESP 16; O2SAT 100
[2023-05-30 01:02] VITALS: BP 120/76; PULSE 98; RESP 16; O2SAT 99
== END 2023-05-30 02:04 | disposition home or self-care (01) ==
PROVIDERS: Emergency Provider Internal Medicine; PCP Family Medicine
DX: R10.32 Left lower quadrant pain (principal); I10 Essential (primary) hypertension; E87.6 Hypokalemia; D18.03 Hemangioma of intra-abdominal structures
CPT/HCPCS: 74177; 80053; 81003; 81025; 84484; 85025; 85610; 85730; 93005; 96374; 99285; J0360; Q9967

== ENCOUNTER 2023-10-01 20:18 | Emergency (ER) | payer BC, SELFPAY ==
--- NOTE | 2023-10-01 20:29 | ECG_ITS ---
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 Measurements Intervals [place] Rate: 59 P: 40 [place]: 150 QRS: 30 QRSD: 89 T: 46 QT: 360 QTc: 359 Interpretive Statements SINUS BRADYCARDIA Compared to ECG 05/30/2023 00:25:45 Sinus rhythm no longer present Electronically Signed On 10-02-2023 9:22:23 CDT by Phillip Cook M.D. [id number]
--- NOTE | 2023-10-01 20:31 | PC.NURSE ---
pt got an ekg done with the systems technologist, it was given to the provider, and on return to pt she told the systems technologist that she was just gonna go home.
== END 2023-10-01 20:31 | disposition left against medical advice (07) ==
LOC: ER 20:22
PROVIDERS: Emergency Provider Family Medicine; PCP Family Medicine
DX: Z53.21 Procedure and treatment not carried out due to patient leaving prior to being seen by health care provider (principal)
CPT/HCPCS: 93005

== ENCOUNTER 2023-10-04 21:41 | Emergency (ER) | payer BC, SELFPAY ==
[2023-10-04 21:46] VITALS: BP 157/93; PULSE 70; RESP 16; TEMP 37.1; O2SAT 100
--- NOTE | 2023-10-04 22:38 | CTR_ITS ---
PROCEDURE INFORMATION: Exam: CT Abdomen And Pelvis With Contrast Exam date and time: 10/04/2023 10:52 PM Age: 48 years old Clinical indication: Nausea and vomiting; Abdominal pain; Localized; Right upper quadrant (ruq); Prior surgery; Surgery date: 6+ months; Surgery type: Gb, appy, c section x 3, tubal; Additional info: Ruq pain, n/v, itching, jaundice TECHNIQUE: Imaging protocol: Computed tomography of the abdomen and pelvis with contrast. Radiation optimization: All CT scans at this facility use at least one of these dose optimization techniques: automated exposure control; mA and/or kV adjustment per patient size (includes targeted exams where dose is matched to clinical indication); or iterative reconstruction. Contrast material: OMNIPAQUE 350; Contrast volume: 100 ml; Contrast route: INTRAVENOUS (IV); COMPARISON: CT abdomen pelvis w con* [id number] 05/30/2023 12:15 AM RADIATION DOSE METRICS: Total DLP (mGy-cm): 596.53 FINDINGS: Liver: 1.8 cm hypoattenuating focus with peripheral discontinuity within the left hepatic lobe likely representing a hemangioma. Gallbladder and biliary ducts: There is post cholecystectomy. Pancreas: Normal. No ductal dilation. Spleen: Mildly prominent spleen measuring up to 12 cm. Adrenal glands: Normal. No mass. Kidneys and ureters: Normal. No hydronephrosis. Stomach and bowel: Diverticulosis without evidence of diverticulitis. Appendix: Status post appendectomy. Intraperitoneal space: Unremarkable. No free air. No significant fluid collection. Vasculature: Unremarkable. No abdominal aortic aneurysm. Lymph nodes: Unremarkable. No enlarged lymph nodes. Urinary bladder: Unremarkable as visualized. Reproductive: The endometrium measures up to 1 cm. There is a hypoattenuating irregular focus near the lower uterine segment/cervix, which appears slightly increased compared to prior CT scan May 30, 2023. Bones/joints: . No acute fracture. Spondylosis with intervertebral disc space narrowing most pronounced at L5-S1. Soft tissues: Unremarkable. CT/CT abdomen pelvis w con* [id number] IMPRESSION: 1. No acute findings within the abdomen or pelvis. 2. The endometrium measures up to 1 cm. There is a hypoattenuating irregular focus near the lower uterine segment/cervix, which appears slightly increased compared to prior CT scan May 30, 2023. Findings may represent a nabothian cyst or cystic fibroid and can be further evaluated with ultrasound if clinically indicated.
--- NOTE | 2023-10-04 22:46 | ED_ITS ---
HPI - Abdominal Pain 2 General: Chief Complaint: Abdominal Pain Stated Complaint: severe right flank back pain yellow eyes Time Seen by Provider: 10/04/23 22:21 History of Present Illness: Patient had the symptoms for the last couple weeks. Right upper quadrant abdominal pain that radiated into her back, feeling of fullness left, only able to eat a little couple bites at a time. Nauseated all the time. Thinks her eyes are getting yellow and she has been itching all over. Has seen [facility]. [facility], she is worried about her liver. Patient has had her gallbladder removed. Review of Systems 2 General: Reports: 10 or more systems reviewed and unremarkable except in HPI and below PFSH ED 2 PFSH: Medical History Arthralgia of both hands HTN (hypertension) Raynaud's disease Encounter for screening for other viral diseases Inflammatory arthritis Chest pain Surgical History History of laparoscopic cholecystectomy History of tubal ligation S/P section S/P laminectomy Family History Mother Breast cancer Ovarian cancer Uterine cancer Father Heart disease Hypertension Grandmother Ovarian cancer maternal Uterine cancer maternal Denies family history of Colon cancer Diabetes Hypercholesteremia Thyroid disease Stroke Social History Substance/Drug Use: never Physical Exam 2 Const: COMMON NORMALS: no acute distress, average body habitus, patient oriented x3, no limitations, healthy appearing, alert and well nourished HENMT: COMMON NORMALS: normocephalic, atraumatic, hearing grossly normal bilaterally, external ears normal, Normal external nose present and moist oral mucous membranes HEAD & SCALP: normocephalic and atraumatic NOSE: Normal external nose present EXTERNAL EAR: Yes external ears normal Eye: COMMON NORMALS: Equal, round and reactive pupils present, EOMs intact bilaterally, conjunctivae normal and negative for no scleral icterus (Mild scleral jaundice) CONJUNCTIVA: Yes conjunctivae normal PUPIL: Yes Equal, round and reactive pupils present Neck/C-Spine: COMMON NORMALS: full ROM, no lymphadenopathy, supple, no meningeal signs, no JVD and Thyroid normal THYROID: Thyroid normal Chest: COMMONS NORMALS: normal inspection of the chest and normal palpation of entire chest wall Resp: COMMON NORMALS: normal respiratory effort, No retractions, No use of accessory muscles and clear to auscultation bilaterally AUSCULTATION: clear to auscultation bilaterally Cardio: COMMON NORMALS: no JVD, regular rate, regular rhythm, S1 normal heart sound present, S2 normal heart sound present, No gallops present (Cardio), No clicks present (Cardio), No murmurs present (Cardio) and No rub (Cardio) R ATE: regular rate RHYTHM: regular rhythm HEART SOUNDS: S1 normal heart sound present and S2 normal heart sound present GI: COMMON NORMALS: Normal to inspection, nondistended, normoactive bowel sounds present, Soft to palpation, No hepatosplenomegaly present and no masses; negative for non-tender (Moderate to severe right upper quadrant abdominal pain) PALPATION: Yes Soft to palpation and Yes No hepatosplenomegaly present Neuro: COMMON NORMALS: patient oriented x3 SENSORIUM/ORIENTATION: Yes alert MENINGEAL SIGNS: Yes no meningeal signs Course 2 Vital Signs: Vital signs: Vital Signs Temperature 98.7 F 10/04/23 21:46 Pulse Rate 70 10/04/23 21:46 Respiratory Rate 16 10/04/23 21:46 Blood Pressure 157/93 10/04/23 21:46 Pulse Oximetry 100 10/04/23 21:46 Oxygen Delivery Me thod Room Air 10/04/23 21:46 MDM - Abdominal Pain Medical Decision Making Presents with unbearable right upper quadrant abdominal pain. And mild yellowing of her eyes. Patient denies any alcohol use. Patient had lab work to include CBC CMP magnesium PT/INR ammonia lipase urinalysis all of which were essentially benign. Patient has contrasted CT scan of the abdomen pelvis which showed no acute findings. Patient was bolused 1 L normal saline, given 20 mEq of potassium x 2, given 30 mg Toradol, patient is feeling somewhat better but still in discomfort. Patient be discharged to follow-up with her PCP. Differential Diagnosis Likely abdominal pain Medical Records I reviewed the patient's medical records. Lab Data I reviewed the patient's lab results. 10/04/23 22:44 10/04/23 22:44 Labs/Radiology: Radiology Impressions Abdomen/Pelvis CT 10/04/23 22:38 IMPRESSION: 1. No acute findings within the abdomen or pelvis. 2. The endometrium measures up to 1 cm. There is a hypoattenuating irregular focus near the lower uterine segment/cervix, which appears slightly increased compared to prior CT scan May 30, 2023. Findings may represent a nabothian cyst or cystic fibroid and can be further evaluated with ultrasound if clinically indicated. Laboratory Results WBC 7.18 10^3/uL (3.29-11.43) 10/04/23 22:44 RBC 4.92 10^6/uL (3.85-5.65) 10/04/23 22:44 Hgb 12.50 g/dL (11.27-16.99) 10/04/23 22:44 Hct 38.2 % (36-47) 10/04/23 22:44 MCV 77.6 fl (85-98) L 10/04/23 22:44 MCH 25.4 pg (27-33) L 10/04/23 22:44 MCHC 32.7 g/dL (30-55) 10/04/23 22:44 RDW 16.6 % (12.1-15.1) H 10/04/23 22:44 Plt Count 233 10^3/cmm (157-399) 10/04/23 22:44 MPV 11.1 fL (7.4-10.4) H 10/04/23 22:44 Neut % (Auto) 61.9 % 10/04/23 22:44 Lymph % (Auto) 29.5 % 10/04/23 22:44 [place] % (Auto) 6.4 % 10/04/23 22:44 Eos % (Auto) 1.4 % 10/04/23 22:44 Baso % (Auto) 0.7 % 10/04/23 22:44 Neut # (Auto) 4.44 10^3/uL (1.8-7.7) 10/04/23 22:44 Lymph # (Auto) 2.1 10^3/uL (0.8-4.8) 10/04/23 22:44 [place] # (Auto) 0.5 10^3/uL (0.2-0.9) 10/04/23 22:44 Eos # (Auto) 0.1 10^3/uL (0.0-0.8) 10/04/23 22:44 Baso # (Auto) 0.1 10^3/uL (0.0-0.1) 10/04/23 22:44 Nucleated RBC % (auto) 0 % 10/04/23 22:44 Nucleated RBCs # 0.0 /100WBC 10/04/23 22:44 PT 13.40 SECONDS (12.1-14.9) 10/04/23 22:44 INR 0.99 (0.8-1.2) 10/04/23 22:44 Sodium 137 mmol/L (136-145) 10/04/23 22:44 Potassium 3.1 mmol/L (3.5-5.1) L 10/04/23 22:44 Chloride 99 mmol/L (98-107) 10/04/23 22:44 Carbon Dioxide 27 mmol/L (22-29) 10/04/23 22:44 Anion Gap 14.1 (5-19) 10/04/23 22:44 BUN 11 mg/dL (6-20) 10/04/23 22:44 Creatinine 0.8 mg/dL (0.5-0.9) 10/04/23 22:44 GFR Calculation 76.9 mL/min (90-130) L 10/04/23 22:44 Glucose 100 mg/dL (65-115) 10/04/23 22:44 Calculated Osmolality 283 mOsm/kg (285-295) L 10/04/23 22:44 Calcium 8.8 mg/dL (8.5-10.5) 10/04/23 22:44 Phosphorus 2.6 mg/dL (2.5-4.5) 10/04/23 22:44 Magnesium 2.1 mg/dL (1.7-2.3) 10/04/23 22:44 Total Bilirubin 0.4 mg/dL (0.15-1.2) 10/04/23 22:44 AST 20 U/L (0-32) 10/04/23 22:44 ALT 10 U/L (0-33) 10/04/23 22:44 Alkaline Phosphatase 72 U/L (35-105) 10/04/23 22:44 Ammonia 34 umol/L (11-51) 10/04/23 22:44 Total Protein 6.8 g/dL (6.6-8.7) 10/04/23 22:44 Albumin 4.0 g/dL (3.5-5.2) 10/04/23 22:44 Globulin 2.8 g/dL (1.3-4.6) 10/04/23 22:44 Lipase 47 U/L (13-60) 10/04/23 22:44 Urine Color Yellow (Yellow) 10/04/23 23:05 Urine Appearance Clear (CLEAR) 10/04/23 23:05 Urine pH 7 (5-7) 10/04/23 23:05 Ur Specific [place] 1.015 (1.005-1.030) 10/04/23 23:05 Urine Protein Neg (Negative) 10/04/23 23:05 Urine Glucose (UA) Norm (Normal) 10/04/23 23:05 Urine Ketones Negative (Negative) 10/04/23 23:05 Urine Blood Neg (Negative) 10/04/23 23:05 Urine Nitrate Negative (Negative) 10/04/23 23:05 Urine Bilirubin Neg (Negative) 10/04/23 23:05 Urine Urobilinogen Norm mg/dL (Negative) 10/04/23 23:05 Ur Leukocyte Esterase Negative (Negative) 10/04/23 23:05 All radiology interpretation(s) finalized by discharge Discharge Plan Discharge Patient Disposition: Home Clinical Impression: Right upper quadrant abdominal pain, Acute hypokalemia Condition: Stable Prescriptions: No Action amoxicillin 500 mg tablet 1,000 mg PO BID 10 Days Qty: 40 0RF ibuprofen 600 mg tablet 600 mg PO Q8H PRN (Reason: pain) Qty: 30 0RF ondansetron 4 mg tablet,disintegrating 4 mg PO Q8H PRN (Reason: nausea and vomiting) Qty: 12 0RF Mounjaro 2.5 mg/0.5 mL Pen Injector 2.5 mg SUBCUT Q7D Discharge Orders: Discharge ED (Routine); Ordered 10/04/23 Ordered By: Damon Henderson Referrals: Jannette Cook MD [Primary Care Provider] - 1 week Patient Instructions: Abdominal Pain (ED), Hypokalemia (ED) Activity Restrictions/Additional Instructions: Thank you for choosing [facility] for your healthcare needs today. Please realize that you were seen in the emergency department and that we are providing you with an emergency medical screening exam and this may not be a complete and all exclusive of all testing and/or medical workup we may need to determine your element or severity of your illness. It is very important that you follow-up as instructed with your primary care provider or specialist for the additional evaluation and to discuss your medical treatment plan. You may return to the emergency department should you have concerns or if your condition changes or worsens in any way. Coding Level of Care Code ED Drug Abuse Counselor for Lela Fowler
[2023-10-04] MEDS: iohexol 350 mg/mL 500 mL Btl (per mL) IV (22:56)
[2023-10-04 23:02] LABS: Basophils # 0.1 10^3/uL (0.0-0.1); Basophils % 0.7 %; Eosinophils # 0.1 10^3/uL (0.0-0.8); Eosinophils % 1.4 %; Hematocrit 38.2 % (36-47); Lymphocytes # 2.1 10^3/uL (0.8-4.8); Lymphocytes % 29.5 %; Mean Corpuscular HGB Conc 32.7 g/dL (30-55); Mean Corpuscular Hemoglobin 25.4 pg (27-33); Mean Corpuscular Volume 77.6 fl (85-98); Mean Platelet Volume 11.1 fL (7.4-10.4); Monocytes # 0.5 10^3/uL (0.2-0.9); Monocytes % 6.4 %; Neutrophils # 4.44 10^3/uL (1.8-7.7); Neutrophils % 61.9 %; Nucleated Red Blood Cells % 0 %; Platelet Count 233 10^3/cmm (157-399); Red Blood Count 4.92 10^6/uL (3.85-5.65); Red Cell Distribution Width 16.6 % (12.1-15.1); White Blood Count 7.18 10^3/uL (3.29-11.43)
[2023-10-04] MEDS: sodium chloride 0.9% 1,000 ML 999 ML IV (23:04)
[2023-10-04 23:05] LABS: Add Urine Microscopic? NO; Charge for UA Resulting for Rev
[2023-10-04 23:10] LABS: Bilirubin Urine Neg (Negative); Blood Urine Neg (Negative); Glucose Urine UA Norm (Normal); Ketones Urine Negative (Negative); Leukocyte Esterase Urine Negative (Negative); Nitrate Urine Negative (Negative); Protein Urine Neg (Negative); Specific Gravity, Urine 1.015 (1.005-1.030); Urine Appearance Clear (CLEAR); Urine Color Yellow (Yellow); Urobilinogen Urine Norm (Negative); pH Urine 7 (5-7)
[2023-10-04] MEDS: ketorolac 30 mg/mL INJ IVP (23:14)
[2023-10-04 23:15] LABS: INR 0.99 (0.8-1.2)
[2023-10-04 23:19] LABS: Ammonia 34 umol/L (11-51)
[2023-10-04 23:20] LABS: Alanine Aminotransferase 10 U/L (0-33); Alkaline Phosphatase 72 U/L (35-105); Anion Gap 14.1 (5-19); Aspartate Amino Transferase 20 U/L (0-32); Blood Urea Nitrogen 11 mg/dL (6-20); Calcium 8.8 mg/dL (8.5-10.5); Carbon Dioxide 27 mmol/L (22-29); Chloride 99 mmol/L (98-107); Creatinine Clr Calc Pharmacy 86.5274; Globulin 2.8 g/dL (1.3-4.6); Glomerular Filtration Rate 76.9 mL/min (90-130); Glucose 100 mg/dL (65-115); Lipase 47 U/L (13-60); Magnesium 2.1 mg/dL (1.7-2.3); Osmolality Calculated 283 mOsm/kg (285-295); Phosphorus 2.6 mg/dL (2.5-4.5); Potassium 3.1 mmol/L (3.5-5.1); Sodium 137 mmol/L (136-145); Total Bilirubin 0.4 mg/dL (0.15-1.2); Total Protein 6.8 g/dL (6.6-8.7)
[2023-10-04 23:59] VITALS: PULSE 74; RESP 16; O2SAT 100
[2023-10-05] MEDS: potassium chloride ER 20 mEq Tablet 40 MEQ PO (00:03)
[2023-10-05 00:11] VITALS: BP 141/89; PULSE 71; RESP 16; O2SAT 99
== END 2023-10-05 00:12 | disposition home or self-care (01) ==
PROVIDERS: Emergency Provider Emergency Medicine; PCP Family Medicine
DX: R10.11 Right upper quadrant pain (principal); E87.6 Hypokalemia; I10 Essential (primary) hypertension
CPT/HCPCS: 74177; 80053; 81003; 82140; 83690; 83735; 84100; 85025; 85610; 96361; 96374; 99285; J1885; J7030; Q9967

== ENCOUNTER 2023-11-07 10:49 | Outpatient (CLI) | payer BC, SELFPAY ==
--- NOTE | 2023-11-07 10:54 | XR_ITS ---
WS: [id number] Exam: XR sacrum coccyx min 2V [id number] Date/Time of Exam: 11/07/2023 10:56 AM Reason For Exam: SACROCOCCYGEAL DISORDER/COCCYDYNIA No sacrococcygeal fracture noted. No bone destruction identified. Soft tissues are unremarkable. Inci dentally noted is degeneration of the L5-S1 intervertebral disc. Minimal DJD of the SI joints. XR/XR sacrum coccyx min 2V [id number] IMPRESSION: 1. No fracture or bone destruction noted. Mild bilateral SI joint DJD. L5-S1 di sc degeneration.
== END 2023-11-07 10:50 | disposition home or self-care (01) ==
LOC: RAD 10:51
PROVIDERS: PCP Family Medicine; Visit Provider Family Medicine
DX: M53.3 Sacrococcygeal disorders, not elsewhere classified (principal); M51.36 Other intervertebral disc degeneration, lumbar region; M51.37 Other intervertebral disc degeneration, lumbosacral region
CPT/HCPCS: 72220

== ENCOUNTER 2023-11-23 08:10 | Outpatient (CLI) | payer SELFPAY ==
--- NOTE | 2023-11-23 08:16 | US_ITS ---
WS: [id number] US pelv w/transvag [id number] HISTORY: Possible Fibroid on CT COMPARISON: CT 10/04/2023 Uterus: 9.7 cm x 6.9 cm x 4.5 cm. Mildly enlarged anteverted uterus. Endometrium: 0.9 cm. Endometrium is poorly visualized but no mass identified. Numerous nabothian cyst s. No endocervical mass seen. Right ovary: 4.0 cm x 3.8 cm x 2.6 cm. Normal size and vascularity, no cystic or solid masses. Follic les. No cyst. Left ovary: 2.1 cm x 1.8 cm x 1.0 cm. Normal size and vascularity, no cystic or solid masses. Follicl es. No free fluid in the cul-de-sac. US/US pelv w/transvag [id number] IMPRESSION: 1. Numerous nabothian cysts. 2. No mass at the endocervical junction identified. 3. Mild uterine enlargement.
== END 2023-11-23 08:11 | disposition home or self-care (01) ==
LOC: RAD 08:11
PROVIDERS: PCP Family Medicine; Visit Provider Family Medicine
DX: D25.9 Leiomyoma of uterus, unspecified (principal); N85.2 Hypertrophy of uterus
CPT/HCPCS: 76830; 76856

== ENCOUNTER 2023-11-24 10:29 | Outpatient (CLI) | payer BC, SELFPAY ==
--- NOTE | 2023-11-24 | MM_ITS ---
WS: [id number] BILATERAL SCREENING DIGITAL TOMOSYNTHESIS MAMMOGRAM WITH CAD HISTORY: SCREENING COMPARISON: 12/01/2021, 05/09/2012, 07/05/2018 Bilateral CC and MLO views with tomosynthesis and synthetic mammography submitted. Computer aided det ection analyzed. Breast composition: There are scattered areas of fibroglandular density. No suspicious masses, microc alcifications or architectural distortion. Benign calcifications in each breast. MM/MM [facility] tomosynthesis [id number] IMPRESSION: BI-RADS: 2 - Benign. FOLLOW UP: 1 Year Follow-up
== END 2023-11-24 10:30 | disposition home or self-care (01) ==
LOC: RAD 10:30
PROVIDERS: PCP Family Medicine; Visit Provider Family Medicine
DX: Z12.31 Encounter for screening mammogram for malignant neoplasm of breast (principal); R92.323 Mammographic fibroglandular density, bilateral breasts; R92.1 Mammographic calcification found on diagnostic imaging of breast
CPT/HCPCS: 77063; 77067

== ENCOUNTER 2024-06-11 07:18 | Outpatient (CLI) | payer OTHER, SELFPAY ==
--- NOTE | 2024-06-11 07:25 | MR_ITS ---
WS: [id number] MRI sacrum without gadolinium enhancement INDICATION: Pain down RIGHT leg TECHNIQUE: Coronal T1, coronal T2, coronal STIR. Axial T1 and T2 imaging. Sagittal T2 imaging with fat-sat FINDINGS: Large LEFT cystic-appearing ovarian lesion. This measures approximately 4.3 x 4.9 cm. Recommend further evaluation with ultrasound. Nabothian cysts in the cervix. Normal bone marrow signal in the sacrum and sacral ala. Normal visualized iliac wings. Disc extrusion at L4-5 described on the lumbar spine MRI. Normal bone marrow signal in the sacrum and coccyx. Normal sacrococcygeal junction. MR/MR sacrum wo con* [id number] IMPRESSION: 1. Normal bone marrow signal in the sacrum and coccyx. 2. Large LEFT ovarian cystic lesion measuring 4.2 x 4.9 cm. Recommend pelvic u ltrasound. 3. L4-L5 disc extrusion described on lumbar spine MRI.
--- NOTE | 2024-06-11 07:25 | MR_ITS ---
WS: [id number] MRI LUMBAR SPINE NONCONTRAST TECHNIQUE: Sagittal T1, T2 and STIR imaging. Axial T1 and T2 imaging. CLINICAL INFORMATION: SPINAL STENOSIS/URINARY INCONTINENCE/SCIATICA COMPARISON: MRI 03/19/2019 FINDINGS: Prior postoperative changes LEFT laminectomy L5-S1. Disc bulge at T10-11 with mild to moderate central canal stenosis similar to previous. Moderate RIGHT T10- 11 foraminal narrowing. L1-L2: Mild facet arthropathy. L2-L3: No significant disc bulging. Moderate facet arthropathy. Spinal canal and foramen are patent. L3-L4: Mild annular bulging. Slight effacement of the ventral thecal sac. Moderate facet arthropathy. Spinal canal and foramen are patent. L4-L5: New recurrent RIGHT paracentral disc extrusion with migration posterior to the L4 vertebral body. This results in moderate central canal stenosis with impingement on the traversing right-sided nerve roots. Moderate facet arthropathy. Foramen are patent. Disc material measures 7.6 x 14.3 mm AP by craniocaudal. L5-S1: Disc desiccation. Osteophytic ridging. Mild facet arthropathy. Spinal canal and foramen are patent. Mild central canal stenosis in the cervical spine with a central disc protrusion at C6-7. Shallow disc protrusions throughout the thoracic spine worse at T10-11 similar to previous. Visualized pelvic bony structures: Normal. Paravertebral soft tissues: Normal. Partially visualized large LEFT ovarian cystic lesion measuring 4.5 x 4.5 cm. This is only partially included on this study. Recommend further evaluation with ultrasound. MR/MR lumbar spine wo con* [id number] IMPRESSION: 1. Partially visualized large LEFT ovarian cystic lesion measuring 4.5 x 4.5 cm. This is only partially included on this study. Recommend further evaluatio n with ultrasound. 2. RIGHT paracentral disc extrusion L4-5 with migration of disc material poste rior to the L4 vertebral body with moderate central canal stenosis and impingem ent of the traversing right-sided nerve roots. Recommend spine surgery consulta tion. This is new from previous. 3. Mild to moderate central canal stenosis T10-11 similar to previous. 4. Mild central canal stenosis in the cervical spine described above with a sh allow central protrusion this appears progressed compared to previous 5. Numerous additional protrusions in the thoracic spine can be followed up [facility] thoracic spine MRI.
== END 2024-06-11 07:19 | disposition home or self-care (01) ==
LOC: RAD 07:22
PROVIDERS: PCP Family Medicine; Visit Provider Family Medicine
DX: M48.061 Spinal stenosis, lumbar region without neurogenic claudication (principal); M53.3 Sacrococcygeal disorders, not elsewhere classified; M51.369 Other intervertebral disc degeneration, lumbar region without mention of lumbar back pain or lower extremity pain; R93.7 Abnormal findings on diagnostic imaging of other parts of musculoskeletal system; M48.04 Spinal stenosis, thoracic region; M48.02 Spinal stenosis, cervical region; M51.24 Other intervertebral disc displacement, thoracic region; Z98.890 Other specified postprocedural states; M51.34 Other intervertebral disc degeneration, thoracic region; M47.896 Other spondylosis, lumbar region; M51.379 Other intervertebral disc degeneration, lumbosacral region without mention of lumbar back pain or lower extremity pain; M25.78 Osteophyte, vertebrae; M47.897 Other spondylosis, lumbosacral region; M50.223 Other cervical disc displacement at C6-C7 level; N83.8 Other noninflammatory disorders of ovary, fallopian tube and broad ligament; N88.8 Other specified noninflammatory disorders of cervix uteri
CPT/HCPCS: 72148

== ENCOUNTER 2024-07-11 13:07 | Outpatient (CLI) | payer SELFPAY ==
--- NOTE | 2024-07-11 13:10 | USR_ITS ---
PROCEDURE INFORMATION: Exam: US Pelvis Transabdominal, Complete, and US Pelvis Transvaginal, Non-obstetric Exam date and time: 07/11/2024 1:19 PM Age: 48 years old Clinical indication: Condition or disease; Ovarian conditions; Type of cyst not specified; Additional info: Ovarian cyst TECHNIQUE: Imaging protocol: Real-time complete transabdominal and transvaginal pelvic ultrasound (non-obstetric) with image documentation. Transvaginal imaging was used for better evaluation of the endometrium, adnexa, and/or cervix. COMPARISON: US pelv w/transvag [id number] 11/23/2023 8:21 AM FINDINGS: Uterus: Uterus measures 8.9 x 4.5 x 5.5 cm. Normal endometrial thickness. Multiple nabothian cysts in the cervix. Right ovary/adnexa: Right ovary has normal morphology and measures 2.6 x 2.6 x 1.8 cm. Left ovary/adnexa: Left ovary is poorly visualized and appears to be mostly replaced by a simple cyst measuring 2.4 x 2.3 x 2.4 cm. Intraperitoneal space: No intraperitoneal fluid. Urinary bladder: Normal. US/US pelv w/transvag [id number] IMPRESSION: 2.4 cm left ovarian cyst.
== END 2024-07-11 13:08 | disposition home or self-care (01) ==
LOC: RAD 13:09
PROVIDERS: PCP Family Medicine; Visit Provider Family Medicine
DX: N83.292 Other ovarian cyst, left side (principal); N88.8 Other specified noninflammatory disorders of cervix uteri
CPT/HCPCS: 76830; 76856

== ENCOUNTER 2024-10-11 11:10 | Outpatient (CLI) | payer OTHER, SELFPAY ==
--- NOTE | 2024-10-11 11:14 | MM_ITS ---
WS: [id number] BILATERAL 3D TOMOSYNTHESIS DIGITAL SCREENING MAMMOGRAPHY WITH CAD CLINICAL INFORMATION: SCREENING HISTORY: Screening mammogram. No current complaints. COMPARISON: 2023 TECHNIQUE: Bilateral CC and MLO views. FINDINGS: Scattered fibroglandular densities bilaterally. No suspicious focal mass, asymmetry, calcifications, or architectural distortion. No evidence of malignancy. Incidental punctate lucent centered calcifications. MM/MM scr tomosynthesis [id number] IMPRESSION: DENSITY: There are scattered areas of fibroglandular density. BI-RADS: 2 - Benign. FOLLOW UP: 1 Year Follow-up Recommend return to annual screening mammography.
== END 2024-10-11 11:11 | disposition home or self-care (01) ==
LOC: RAD 11:10
PROVIDERS: PCP Family Medicine; Visit Provider Nurse Practitioner Family
DX: Z12.31 Encounter for screening mammogram for malignant neoplasm of breast (principal); R92.323 Mammographic fibroglandular density, bilateral breasts; R92.1 Mammographic calcification found on diagnostic imaging of breast
CPT/HCPCS: 77063; 77067

== ENCOUNTER 2024-10-18 14:23 | Outpatient (CLI) | payer OTHER, SELFPAY ==
--- NOTE | 2024-10-18 14:30 | CT_ITS ---
WS: [id number] CT HEAD NONCONTRAST HISTORY: OTHER AMNESIA TECHNIQUE: Contiguous axial imaging performed through the brain. Bone and soft tissue windows. Sagittal and coronal reformats reviewed. All CT scans at [facility] use at least one of these dose optimization techniques: automated exposure control; mA and/or kV adjustment per patient size (includes targeted exams where dose is matched to clinical indication); or iterative reconstruction. DLP: 1053.58 mGy.cm COMPARISON: 09/16/2012 No acute intracranial hemorrhage, midline shift or mass effect. No atrophy or prior infarcts or herniation. No prior infarcts. No significant atrophy. Ventricles: Normal size with no hydrocephalus. Paranasal sinuses: As visualized are clear. Mastoid air cells: Well pneumatized. Calvarium and scalp: Skull is intact with no soft tissue edema or swelling. CT/CT head wo con* [id number] IMPRESSION: Negative head CT.
== END 2024-10-18 14:24 | disposition home or self-care (01) ==
LOC: RAD 14:26
PROVIDERS: PCP Nurse Practitioner Family; Visit Provider Nurse Practitioner Family
DX: R41.3 Other amnesia (principal)
CPT/HCPCS: 70450

== ENCOUNTER 2024-12-31 14:27 | Emergency (ER) | payer OTHER, SELFPAY ==
[2024-12-31 14:31] VITALS: BP 141/88; PULSE 90; TEMP 36.7; O2SAT 97
[2024-12-31 14:52] VITALS: BP 138/82; PULSE 85; O2SAT 97
--- NOTE | 2024-12-31 14:54 | ED_ITS ---
HPI - Animal Bite 2 General: Chief Complaint: Wound/Laceration Stated Complaint: snake bite on L calf Time Seen by Provider: 12/31/24 14:41 Source: patient Mode of arrival: ambulatory Limitations: no limitations History of Present Illness: Patient is a 41-year-old female presents to ED today for evaluation of a concern of a possible snakebite involving her left calf. 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 She states she raised her pant leg and noticed a small puncture site. There reportedly was a conservation department officer on scene as well who had told her it looked like a snake bite thus prompting her medical evaluation. Patient feels like her muscle is sore and feels like a muscle cramp. She initially thought she noticed some redness surrounding the bite but now thinks this may just be the dried blood-this was cleaned by myself in room and I do not see any obvious edema or erythema at this time. She does have a small abrasion/possible puncture site. No systemic complaints. complaint: animal bite Onset (ago): hour(s) Animal: snake Mechanism: bite Location - Extremities: Left: lower leg Associated symptoms: Reports no associated symptoms; Deny chills, fever(s) or syncope Related Data Home Medications ?Medication ?Instructions ?Recorded ?Confirmed tirzepatide 2.5 mg/0.5 mL 2.5 mg SUBCUT Q7D 04/18/22 0 04/30/23 subcutaneous pen injector (David) Previous Rx's ?Medication ?Instructions ?Recorded ondansetron 4 mg disintegrating 4 mg PO Q8H PRN nausea and 09/23/22 tablet vomiting #12 tabs amoxicillin 500 mg tablet 1,000 mg (2 x 500 mg) PO BID 10 04/30/23 days #40 tabs ibuprofen 600 mg tablet 600 mg PO Q8H PRN pain #30 t abs 04/30/23 Allergies Allergy/AdvReac Type Severity Reaction Status Date / Time meperidine (From Demerol) Allergy Unknown Verified 12/31/24 14:40 Review of Systems 2 Const: Denies: fever(s), chills, body aches, fatigue or malaise Eyes: Denies: change in vision Card: Denies: chest pain, palpitations, lightheadedness, syncope or pre- syncope Resp: Denies: dyspnea GI: Denies: abdominal pain, nausea or vomiting Musc: Reports: extremity pain; Denies: neck pain, back pain, extremity swelling, joint pain, joint swelling, joint redness, joint warmth, joint stiffness, limited range of motion, muscle cramps or muscle weakness Neuro: Denies: numbness in extremities, weakness in extremities, sensory changes or difficulty walking PFSH ED 2 PFSH: Medical History Arthralgia of both hands HTN (hypertension) Raynaud's disease Encounter for screening for other viral diseases Inflammatory arthritis Chest pain Surgical History History of laparoscopic cholecystectomy History of tubal ligation S/P section S/P laminectomy Family History Mother Breast cancer Ovarian cancer Uterine cancer Father Heart disease Hypertension Grandmother Ovarian cancer maternal Uterine cancer maternal Denies family history of Colon cancer Diabetes Hypercholesteremia Thyroid disease Stroke Social History Substance/Drug Use: never Physical Exam 2 Const: COMMON NORMALS: no acute distress, average body habitus, no limitations, healthy appearing, alert and well nourished GENERAL APPEARANCE: cooperative Extremity: COMMON NORMALS: full ROM, no joint enlargement, no clubbing, cyanosis or edema and no pedal edema GENERAL: Yes normal exam except as noted LEFT LOWER EXTREMITY: Yes lower leg (there is no erythema, edema, streaking, induration present) Left lower leg: Yes neurovascular exam (normal) EXTREMITY IMAGE (BACK): 1. pt has a single small 4mm abrasion/puncture L calf; there are not two typical fang like punctures present although this does not entirely exclude snake bite Neuro: COMMON NORMALS: moves all extremities, no focal motor deficits and no sensory deficits noted SENSORIUM/ORIENTATION: Yes alert Skin: NARRATIVE SKIN EXAM: see above Course 2 Vital Signs: Vital signs: Vital Signs Temperature 98.0 F 12/31/24 14:31 Pulse Rate 85 12/31/24 14:52 Blood Pressure 138/82 12/31/24 14:52 Pulse Oximetry 97 12/31/24 14:52 Oxygen Delivery Me thod Room Air 12/31/24 14:52 MDM - Animal Bite Medical Decision Making Patient here for a potential snakebite involving her left calf. No visualized snake. She has been here approximately 2 hours. Snake bite occurred approximately an hour before arrival. She does complain of pain to the site but no obvious swelling, blistering, redness has been noted. Vital signs are stable. Her blood work obtained was unremarkable. Did discuss repeating this in several hours after continued observation but patient would like to go home/back to work. She is an extremely reliable patient as she is an EMS personnel. Recommend she return to the emergency department for worsening or uncontrollable pain, swelling, systemic symptoms, or any other concerns she has. I did speak to poison control who felt comfortable with this plan as well as she had minimal symptoms at this time. Medical Records I reviewed the patient's medical records. Lab Data I reviewed the patient's lab results. 12/31/24 15:03 12/31/24 15:03 Laboratory Results WBC 4.71 10^3/uL (3.29-11.43) 12/31/24 15:03 RBC 4.64 10^6/uL (3.85-5.65) 12/31/24 15:03 Hgb 12.50 g/dL (11.27-16.99) 12/31/24 15:03 Hct 38.2 % (36-47) 12/31/24 15:03 MCV 82.3 fl (85-98) L 12/31/24 15:03 MCH 26.9 pg (27-33) L 12/31/24 15:03 MCHC 32.7 g/dL (30-55) 12/31/24 15:03 RDW 14.9 % (12.1-15.1) 12/31/24 15:03 Plt Count 195 10^3/cmm (157-399) 12/31/24 15:03 MPV 10.7 fL (7.4-10.4) H 12/31/24 15:03 Neut % (Auto) 56.7 % 12/31/24 15:03 Lymph % (Auto) 31.0 % 12/31/24 15:03 [place] % (Auto) 8.1 % 12/31/24 15:03 Eos % (Auto) 3.6 % 12/31/24 15:03 Baso % (Auto) 0.6 % 12/31/24 15:03 Neut # (Auto) 2.67 10^3/uL (1.8-7.7) 12/31/24 15:03 Lymph # (Auto) 1.5 10^3/uL (0.8-4.8) 12/31/24 15:03 [place] # (Auto) 0.4 10^3/uL (0.2-0.9) 12/31/24 15:03 Eos # (Auto) 0.2 10^3/uL (0.0-0.8) 12/31/24 15:03 Baso # (Auto) 0.0 10^3/uL (0.0-0.1) 12/31/24 15:03 Nucleated RBC % (auto) 0 % 12/31/24 15:03 Nucleated RBCs # 0.0 /100WBC 12/31/24 15:03 PT 13.70 SECONDS (12.1-14.9) 12/31/24 15:03 INR 0.98 (0.8-1.2) 12/31/24 15:03 APTT 25.6 SECONDS (23.9-36.7) 12/31/24 15:03 Fibrinogen 297 mg/dL (174-498) 12/31/24 15:03 Sodium 139 mmol/L (136-145) 12/31/24 15:03 Potassium 3.2 mmol/L (3.5-5.1) L 12/31/24 15:03 Chloride 100 mmol/L (98-107) 12/31/24 15:03 Carbon Dioxide 27 mmol/L (22-29) 12/31/24 15:03 Anion Gap 15.2 (5-19) 12/31/24 15:03 BUN 12 mg/dL (6-20) 12/31/24 15:03 Creatinine 0.7 mg/dL (0.5-0.9) 12/31/24 15:03 GFR Calculation 89.3 mL/min (90-130) L 12/31/24 15:03 Glucose 90 mg/dL (65-115) 12/31/24 15:03 Calculated Osmolality 287 mOsm/kg (285-295) 12/31/24 15:03 Calcium 9.1 mg/dL (8.5-10.5) 12/31/24 15:03 Total Bilirubin 0.4 mg/dL (0.15-1.2) 12/31/24 15:03 AST 20 U/L (0-32) 12/31/24 15:03 ALT 10 U/L (0-33) 12/31/24 15:03 Alkaline Phosphatase 69 U/L (35-105) 12/31/24 15:03 Creatine Kinase 79 U/L (26-192) 12/31/24 15:03 Total Protein 6.7 g/dL (6.6-8.7) 12/31/24 15:03 Albumin 4.3 g/dL (3.5-5.2) 12/31/24 15:03 Globulin 2.4 g/dL (1.3-4.6) 12/31/24 15:03 No radiology studies performed this visit Discharge Plan Discharge Patient Disposition: Home Clinical Impression: Snake bite Qualifiers: Encounter type: initial encounter Qualified Code(s): W59.11XA - Bitten by nonvenomous snake, initial encounter Condition: Stable Prescriptions: No Action amoxicillin 500 mg tablet 1,000 mg PO BID 10 Days Qty: 40 0RF ibuprofen 600 mg tablet 600 mg PO Q8H PRN (Reason: pain) Qty: 30 0RF ondansetron 4 mg tablet,disintegrating 4 mg PO Q8H PRN (Reason: nausea and vomiting) Qty: 12 0RF Mounjaro 2.5 mg/0.5 mL Pen Injector 2.5 mg SUBCUT Q7D Discharge Orders: Discharge ED (Routine); Ordered 12/31/24 Ordered By: Yolis Alexandre Referrals: Beltran,Kathy, WELD LAY OUT WORKER [Primary Care Provider, Nurse Practitioner] Patient Instructions: Snake Bite (ED), Patient Portal & Agustina Instructions Activity Restrictions/Additional Instructions: As we discussed, you are wanting to go home at this time. I think continued close observation of symptoms at home/work is appropriate. We need to see you back here in the emergency department for onset of significant swelling or tenseness to the site of the potential bite or to the leg, worsening or uncontrollable pain, severe nausea or vomiting, chest pain, shortness of breath, palpitations, dizziness, difficulty breathing, generally feeling worse or unwell, or any other concerns you may have. Guidelines to not recommend prophylactic antibiotics following snake bites. Print Language: Emirati Coding Level of Care Code ED Environmental Planning Engineer for Lela Fowler
[2024-12-31 15:19] LABS: Hematocrit 38.2 % (36-47); Hemoglobin 12.50 g/dL (11.27-16.99); Mean Corpuscular HGB Conc 32.7 g/dL (30-55); Mean Corpuscular Hemoglobin 26.9 pg (27-33); Mean Corpuscular Volume 82.3 fl (85-98); Nucleated Red Blood Cells % 0 %; Platelet Count 195 10^3/cmm (157-399); Red Blood Count 4.64 10^6/uL (3.85-5.65); White Blood Count 4.71 10^3/uL (3.29-11.43)
[2024-12-31 15:34] LABS: INR 0.98 (0.8-1.2); Prothrombin Time 13.70 SECONDS (12.1-14.9)
[2024-12-31 15:35] LABS: Fibrinogen 297 mg/dL (174-498); Partial Thromboplastin Time 25.6 SECONDS (23.9-36.7)
[2024-12-31 15:37] LABS: Alanine Aminotransferase 10 U/L (0-33); Albumin Level 4.3 g/dL (3.5-5.2); Alkaline Phosphatase 69 U/L (35-105); Anion Gap 15.2 (5-19); Aspartate Amino Transferase 20 U/L (0-32); Blood Urea Nitrogen 12 mg/dL (6-20); Calcium 9.1 mg/dL (8.5-10.5); Carbon Dioxide 27 mmol/L (22-29); Chloride 100 mmol/L (98-107); Creatinine Clr Calc Pharmacy 92.4765; Globulin 2.4 g/dL (1.3-4.6); Glucose 90 mg/dL (65-115); Osmolality Calculated 287 mOsm/kg (285-295); Potassium 3.2 mmol/L (3.5-5.1); Sodium 139 mmol/L (136-145); Total Protein 6.7 g/dL (6.6-8.7)
[2024-12-31 16:16] VITALS: BP 118/74; PULSE 74; O2SAT 99
--- OUTSIDE RECORDS SUMMARY | 2024-12-31 17:04 | XMS_ITS | Clinical Summary ---
Author Organization [facility] [address] [place] [address] Care Team Providers Care Floor Renovator Name Role Phone Jannette Cook MD Primary Care Provider [phone]- [phone] Allergies Active Allergy Reactions Criticality Noted Date Comments Meperidine Other (See Comments) 06/22/2019 States had morphine/demerol mixed but has had morphine separate and did fine. States made her stop breathing Medications atenoloL (TENORMIN) 25 mg tablet Take 50 mg by mouth 2 times daily. States only takes 25 mg at night Active hydroCHLOROthiaz tariq 25 mg tablet Take 25 mg by mouth daily. 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 01/16/2015 Midline low back pain without sciatica 5 Weakness of both legs 01/12/2015 Bilateral leg weakness Immunizations Immunization Administration Dates Next Due (ADACEL/BOOSTRIX)(10 YR UP) TDAP VACCINE, 0.5ML, IM 07/27/2007 Hepatitis A Vaccine 07/27/2007 Hepatitis B Vaccine 07/27/2007 Family History Medical History Relation Name Comments Healthy Brother Cancer Father Respiratory Disease Father Other Mother lupus Respiratory Disease Mother Relation Name Status Comments Brother Alive Father Mother Alive Social History Tobacco Use Types Packs/Day Years Used Date Smoking Tobacco: Never Smokeless Tobacco: Never Alcohol Use Standard Drinks/Week Comments No 0 (1 standard drink = 0.6 oz pur e alcohol) Comments No Sex and Gender Information Value Date Recorded Sex Assigned at Not on file 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 Gender Identity Not on file Sexual Orientation Not on file Last Filed Vital Signs Vital Sign Reading Time Taken Comments Blood Pressure 142/89 06/22/2019 6:00 PM CDT Pulse 73 05/06/2018 6:31 PM SPLICER OPERATOR Temperature 36.9 C (98.4 F) 06/22/2019 6:00 PM CDT Respiratory Rate 18 06/22/2019 6:00 PM CDT Oxygen Saturation 100% 06/22/2019 6:00 PM CDT Inhaled Oxygen Concentration - - Weight 103.7 kg (228 lb 9.6 oz) 06/22/2019 3:25 PM CDT Height 165.1 cm (5' 5 ) 06/22/2019 3:25 PM CDT Body Mass Index 38.04 06/22/2019 3:25 PM CDT Plan of Treatment Health Maintenance Due Date Last Done Comments HEPATITIS B VACCINES (1 of 3 - 19+ 3-dose series) 08/199507/27/2007 HPV/Cotest (21-29) 1997 CERVICAL CANCER SCREENING 2006 HPV/Cotest (30-65) 2006 PAP SMEAR 2006 BREAST CANCER SCREENING 2016 DTAP/TDAP/TD VACCINES (2 - Td or Tdap) 07/26/2017 COLORECTAL SCREENING 2021 Colorectal Cancer Screening 2021 FIT-DNA Q 3 years 2021 FIT/FOBT Q 1 year 2021 Flex Sig/CT Colonography Q 5 years 2021 INFLUENZA VACCINE (#1) 2024 Insurance [employer] Advance Directives For more information, please contact: [phone] * Full Code (Latest Code Status on File) Date Activated Date Inactivated Comments 01/17/2015 4:03 PM 01/23/2015 4:34 PM * Full Code Date Activated Date Inactivated Comments 01/11/2015 11:28 PM 01/17/2015 4:03 PM Care Teams Floor Renovator Relationship Specialty Start Date End Date Jannette Cook MD [address] [place] [address] PCP - General Family Practice 05/09/14
--- OUTSIDE RECORDS SUMMARY | 2024-12-31 17:04 | XMS_ITS | Encounter Summary ---
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
--- OUTSIDE RECORDS SUMMARY | 2024-12-31 17:04 | XMS_ITS | Clinical Summary ---
Author Organization [facility] Address [address] [place] [address] Phone Care Team Providers Care Manager Access Name Role Phone Jannette Cook MD Primary Care Provider +1- [phone] Allergies Active Allergy Reactions Criticality Noted Date Comments Meperidine Other (See Comments) 06/22/2019 States had morphine/demerol mixed but has had morphine separate and did fine. States made her stop breathing Medications atenoloL (TENORMIN) 25 mg tablet Take 50 mg by mouth 2 times daily. States only takes 25 mg at night 06/22/2019 Active hydroCHLOROthiaz tariq 25 mg tablet Take 25 mg by mouth daily. 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 Gender Identity Not on file Sexual Orientation Not on file Last Filed Vital Signs Vital Sign Reading Time Taken Comments Blood Pressure 142/89 06/22/2019 6:00 PM CDT Pulse 71 10/05/2018 5:00 AM CDT Temperature 36.9 C (98.4 F) 06/22/2019 6:00 PM CDT Respiratory Rate 18 06/22/2019 6:00 PM CDT Oxygen Saturation 98% 10/05/2018 10: 08 AM CDT Inhaled Oxygen Concentration - - Weight [...] years 2021 INFLUENZA VACCINE (#1) 2024 Insurance [employer] OPEN ACCESS Care Teams Manager Access Relationship Specialty Start Date End Date Jannette Cook MD [address] [place] [address] PCP - General Family Practice 10/04/18
== END 2024-12-31 16:18 | disposition home or self-care (01) ==
PROVIDERS: Emergency Provider Physician Assistant; PCP Nurse Practitioner Family
DX: S81.852A Open bite, left lower leg, initial encounter (principal); W59.11XA Bitten by nonvenomous snake, initial encounter; I10 Essential (primary) hypertension
CPT/HCPCS: 36415; 80053; 82550; 85025; 85384; 85610; 85730; 99283